=== PATIENT | male | born 1960 | race Caucasian/White ===

== ENCOUNTER 2019-09-13 20:39 | Inpatient (IN) | payer OTHER, SELFPAY ==
--- NOTE | ~2019-09-13 | XR_ITS ---
EXAMINATION: XR knee LT min 4V EXAM DATE: 09/13/2019 21:33 INDICATION: Left anterior knee pain, pin hole marker on front. TECHNIQUE: Left knee frontal, crosstable lateral, orthogonal oblique projections for interpretation. There is no prior study for comparison. FINDINGS: No evidence osteochondral defect or joint body in the left knee joint. There are no acute fractures or dislocations identified. There is no subcutaneous gas. Large amount of swelling anter ior to the patellar tendon and the patella. There are no radiopaque foreign bodies. No joint effusi on. IMPRESSION: 1. XR knee LT min 4V exam without acute osseous findings. 2. Anterior soft tissue swelling. Possible prepatellar bursitis. Reviewed, dictated and finalized at location A.
[2019-09-13 21:08] VITALS: BP 139/72; PULSE 85; RESP 22; TEMP 36.9; O2SAT 100
--- NOTE | 2019-09-13 23:47 | ED.EXTPRO ---
HPI - Extremity Problem General Chief complaint: Extremity Problem,Nontraumatic Stated complaint: left knee pain, swollen, red Time Seen by Provider: 09/13/19 23:47 Source: patient Mode of arrival: ambulatory Limitations: no limitations History of Present Illness HPI Narrative: Patient is a 59-year-old male who presents for evaluation of left knee pain and swelling. Patient reports a 3-day history of worsening knee redness, swelling and pain. Patient states the pain is so severe he has been unable to range the knee. Patient denies any medical history. He states he is a daily smoker. When questioned about skin infections, he states he once had an abscess on his right arm. No history of intra-articular joint infection. No history of IV drug abuse. Patient denies fever, but reports that the knee feels warm. He denies trauma or recent fall. No history of injuring this knee in the past. Related Data Home Medications Medication Instructions Recorded Confirmed cyclobenzaprine mg 09/13/19 naproxen PO 09/13/19 Allergies Allergy/AdvReac Type Severity Reaction Status Date / Time Penicillins Allergy Unknown Rash Verified 09/13/19 23:43 morphine AdvReac Confusion Verified 09/13/19 23:43 Review of Systems Review of Systems: Narrative: CONSTITUTIONAL: Denies fever CARDIOVASCULAR: Denies chest pain RESPIRATORY: Denies cough or dyspnea. GASTROINTESTINAL: Denies abdominal pain SKIN: Denies rash MUSCULOSKELETAL: Denies back pain, reports left knee pain NEUROLOGIC: Denies headache PMFSH Past Medical History Medical History Abscess Surgical History Surgical History H/O hernia repair Social History Social History (Updated 09/14/19 @ 00:29 by Carlota Ervin MD) Smoking status: Current every day smoker Tobacco type: cigarettes Alcohol intake: never Substance use: never Living arrangements: with family Gender identity (if verbalized by the patient): Male Exam Narrative: Exam Narrative: GENERAL: Awake, alert, conversant HEAD: Normocephalic, atraumatic. EYES: PERRLA and EOMI. ENT: Nares clear, no rhinorrhea or epistaxis. Mucous membranes moist. NECK: Supple. CHEST: No respiratory distress, breathing even and non labored HEART: Regular rate, sinus rhythm ABDOMEN:Non distended, non tender EXTREMITIES: Left knee is erythematous, edematous, warm to touch. Patient with difficulty completing active range of motion due to pain. Has very minimal flexion. DP pulse 2+. Intact distal sensation. No open wounds or drainage. SKIN: Warm, dry, no rash. NEURO:No focal deficits. Alert and oriented x3 Course Vital Signs Vital signs: Vital Signs Temperature 36.9 C 09/13/19 21:08 Pulse Rate 85 09/13/19 21:08 Respiratory Rate 22 H 09/13/19 21:08 Blood Pressure 139/72 09/13/19 21:08 Pulse Oximetry 100 09/13/19 21:08 Temperature 36.9 C 09/13/19 21:08 Pulse Rate 64 09/14/19 02:09 Respiratory Rate 18 09/14/19 02:09 Blood Pressure 123/74 09/14/19 02:09 Pulse Oximetry 99 09/14/19 02:09 MDM - Extremity (Nontraumatic) MDM Narrative Medical decision making narrative: Patient presented for evaluation of atraumatic left knee pain. Knee is erythematous, edematous, pain with flexion and extension, so much so that this is very limited on exam. Patient is neurovascularly intact. X-ray without acute osseous findings. Patient with a leukocytosis, elevation in inflammatory markers making this very concerning for abscess or intra-articular joint infection. Given patient's history and findings on physical exam, also consistent with prepatellar bursitis versus abscess. Patient was given IV vancomycin, Tylenol, I spoke with orthopedic surgeon on-call who evaluate the patient in the morning. No arthrocentesis given surrounding cellulitis. Patient admitted to hospitalist service. Lab Da
[2019-09-14] VITALS (18 sets, daily range): BP systolic 84–139; BP diastolic 50–90; PULSE 58–93; RESP 12–20; TEMP 36.2–36.9; O2SAT 92–100; BMI 29.5
[2019-09-14] MEDS: SODIUM CHLORIDE 0.9% IV 1,000 ML 999 ML IV CONT (00:50)
[2019-09-14] MEDS: ACETAMINOPHEN 500 MG TABLET 1000 MG PO (00:51)
[2019-09-14 01:03] LABS: Basophils Percent Auto 0.3 % (0.2-1.2); Eosinophils Absolute Auto 0.1 K/mm3 (0-0.3); Hematocrit 37.6 % (42.0-52.0); Hemoglobin 12.6 g/dL (14.0-18.0); Immature Granulocyte Absolute 0.06 K/mm3 (0.00-0.031); Immature Granulocyte Percent A 0.5 % (0-0.5); Lymphocytes Absolute Auto 2.98 K/mm3 (0.9-3.2); Lymphocytes Percent Auto 25.8 % (18.3-44.2); Mean Corpuscular HGB Conc 33.5 g/dl (32-36); Mean Corpuscular Hemoglobin 32.7 pg (26-34); Mean Corpuscular Volume 97.7 fl (80-100); Mean Platelet Volume 10.2 fl (7.4-10.4); Monocytes Percent Auto 8.8 % (2.6-8.5); Neutrophils Absolute Auto 7.3 K/mm3 (1.3-6.7); Neutrophils Percent Auto 63.6 % (45.5-73.1); Platelet Count Result 172 k/mm3 (150-375); Red Blood Count 3.85 M/mm3 (4.6-6.20); Red Cell Distribution Width 12.9 % (11.5-14.5); White Blood Count 11.5 K/mm3 (4.5-10.0)
[2019-09-14 01:17] LABS: Anion Gap 9.6 mmol/L (7-16); Blood Urea Nitrogen 19 mg/dL (9-20); CRP 2.7 mg/dL (<1.0); Calcium 8.5 mg/dL (8.4-10.2); Carbon Dioxide 23 mmol/L (22-30); Chloride 106 mmol/L (98-107); Estimated CRCL calculation 93 ml/min; Estimated Glomerular Filt Rate > 60; Glucose 123 mg/dL (75-110); Potassium 3.6 mmol/L (3.4-5.0); Sodium 135 mmol/L (137-145)
--- NOTE | 2019-09-14 01:33 | PC.NURSE ---
PT STATES [AIN 06/27. OFFERED PAIN MEDICATION. PT REFUSES PAIN MEDS. WILL CONTINUE TO MONITOR
[2019-09-14 01:51] LABS: Erythrocyte Sedimentation Rate 25 mm/hr (0-20)
--- NOTE | 2019-09-14 04:05 | ADMGEN ---
This patient, Rickie Stanton, was admitted to [facility] Surg Room 313-01. Patient/family oriented to hospital policies and general routines including ID bracelet, bed and alarms, visiting hours, pain management, procedures, bathroom and other care routines, personal items, smoking policy, room service/diet, and visiting hours. Valuables list has been completed. Information on how to activate the Rapid Response Team has been discussed. Patient/Family are encouraged to report perceived risks to care and to ask questions if they do not understand what they are told or what they should do.
[2019-09-14] MEDS: SODIUM CHLORIDE 0.9% IV 1,000 ML 125 ML IV CONT (05:28)
[2019-09-14 06:49] LABS: Estimated CRCL calculation 92 ml/min; Estimated Glomerular Filt Rate > 60
--- NOTE | 2019-09-14 08:01 | P.HP_ITS ---
H&P: HPI History of Present Illness Chief complaint: Pre patellar bursitis possible abscess Narrative: Rickie Stanton is a 59 year old male Review of Systems Review of Systems: All systems reviewed & are unremarkable except as noted in HPI and below PMFSH Past Medical History Medical History Abscess Surgical History Surgical History H/O hernia repair Social History Social History (Updated 09/14/19 @ 00:29 by Carlota Ervin MD) Smoking packs per day: 1 Smoking cigarettes per day: 20.0 Years smoked: 47 Smoking pack-years: 47.00 Smoking status: Current every day smoker Tobacco type: cigarettes Alcohol intake: never Substance use: never Living arrangements: with family Gender identity (if verbalized by the patient): Male Spiritual care concerns: No Meds Home Medications and Allergies Home Medications Medication Instructions Recorded Confirmed Type cyclobenzaprine 10 mg PO BID PRN 09/13/19 09/14/19 History naproxen 500 mg PO BID PRN 09/13/19 09/14/19 History Allergies Allergy/AdvReac Type Severity Reaction Status Date / Time Penicillins Allergy Unknown Rash Verified 09/13/19 23:43 morphine AdvReac Confusion Verified 09/13/19 23:43 Vital Signs Vital Signs - 24 hr 09/13/19 21:08 09/14/19 00:32 09/14/19 02:09 Temperature 98.4 F Pulse Rate 85 93 64 Respiratory Rate 22 H 20 18 Blood Pressure 139/72 84/64 L 123/74 Pulse Oximetry 100 95 99 09/14/19 02:46 09/14/19 03:49 09/14/19 03:55 Temperature 97.5 F L Pulse Rate 60 60 58 L Respiratory Rate 20 20 20 Blood Pressure 122/90 122/90 127/71 Pulse Oximetry 100 100 99 09/14/19 05:52 Temperature 97.1 F L Pulse Rate 58 L Respiratory Rate 20 Blood Pressure 126/74 Pulse Oximetry 99 Exam Narrative: Exam Narrative: General:Well developed well nourished patient HEENT: Normocephalic, atraumatic, PERRL, Sclerae anicteric, oral mucosa moist. Neck: Supple Resp: CTA Heart: RRR with no murmurs Abd: Soft, nontender. No pain to palpation. Positive bowel sounds Skin: Warm and dry Extremities: No swelling, erythema or pain to palpation Neuro: Alert and Oriented x . CN 2-12 intact. No focal neurological deficits. H&P: Results Labs Labs: Short CBC 09/14/19 Range/Units 00:45 WBC 11.5 H (4.5-10.0) K/mm3 Hgb 12.6 L (14.0-18.0) g/dL Hct 37.6 L (42.0-52.0) % Plt Count 172 (150-375) k/mm3 [facility] 09/14/19 09/14/19 00:45 05:55 Sodium 135 L Potassium 3.6 Chloride 106 Carbon Dioxide 23 BUN 19 Creatinine 0.90 0.80 Glucose 123 H Calcium 8.5 Quality VTE Prophylaxis VTE prophylaxis: mechanical ordered
--- NOTE | 2019-09-14 09:29 | PM.IMHP ---
H&P: HPI History of Present Illness Chief complaint: Pre patellar bursitis possible abscess Narrative: Rickie Stanton is a 59 year old male with a history of mild COPD who presented emergency room for left knee pain and swelling. Patient states that he started noticing some erythema on the knee Saturday morning and from there it started worsening. He said it is now painful 10/10 and he can't even bear weight on it. He does not have any history of trauma to the area or bug bites that he knows of. He has no history of gout. He takes naproxen daily for arthritis which has not helped his pain. He has not tried anything else other than that. He says the Tylenol does help with his pain here at the hospital. He has no history of HIV or IV drug use. He denies fevers, chills, diarrhea, constipation, nausea, vomiting, chest pain, shortness of breath, numbness or tingling to the area, rashes, wounds, dysuria, abdominal pain or headaches. Back in 2004 he had an abscess on his arm which sounds like was treated with an I&D. He says he sees his primary care doctor about once urine last saw them 8 months ago. He walks around at home normally without any assisted devices and does not have any history of falls. He has mild COPD and takes a bruit uteri all as needed and takes it maybe once every 6 months. He does not have any maintenance inhalers. He had a cardiac catheterization which was negative in 2015 and was told to take aspirin thereafter but has not been doing so because he bleeds too much . He does not Want a nicotine patch while hospitalized. Review of Systems Review of Systems: All systems reviewed & are unremarkable except as noted in HPI and below PMFSH Past Medical History Medical History (Updated 09/14/19 @ 09:38 by Alisha Colvin PA-C) Abscess COPD (chronic obstructive pulmonary disease) Surgical History Surgical History (Updated 09/14/19 @ 09:33 by Alisha Colvin PA-C) H/O hernia repair History of cardiac catheterization reportedly negative History of cholecystectomy Family History Family History (Updated 09/14/19 @ 09:34 by Alisha Colvin PA-C) Mother Lymphoma Diabetes mellitus Father Heart disease COPD (chronic obstructive pulmonary disease) Social History Social History (Updated 09/14/19 @ 09:35 by Alisha Colvin PA-C) Social History: patient smokes 1 pack per day and has been doing so for 47 years. He has no interest in quitting. He does not do marijuana or drugs. No alcohol. 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 He designates his , Rachelle, as his surrogate decision maker. He would like to be a full code but makes note that he does not want to be on prolonged life support if needed. Smoking packs per day: 1 Smoking cigarettes per day: 20.0 Years smoked: 47 Smoking pack-years: 47.00 Smoking status: Current every day smoker Tobacco type: cigarettes Alcohol intake: never Substance use: never Living arrangements: with family Gender identity (if verbalized by the patient): Male Spiritual care concerns: No Meds Home Medications and Allergies Home Medications Medication Instructions Recorded Confirmed Type cyclobenzaprine 10 mg PO BID PRN 09/13/19 09/14/19 History naproxen 500 mg PO BID PRN 09/13/19 09/14/19 History Allergies Allergy/AdvReac Type Severity Reaction Status Date / Time Penicillins Allergy Unknown Rash Verified 09/13/19 23:43 morphine AdvReac Confusion Verified 09/13/19 23:43 Vital Signs Vital Signs - 24 hr 09/13/19 21:08 09/14/19 00:32 09/14/19 02:09 Temperature 98.4 F Pulse Rate 85 93 64 Respiratory Rate 22 H 20 18 Blood Pressure 139/72 84/64 L 123/74 Pulse Oximetry 100 95 99 09/14/19 02:46 09/14/19 03:49 09/14/19 03:55 Temperature 97.5 F L Pulse Rate 60 60 58 L Respiratory Rate 20 20 20 Blood Pressure 122/90 122/90 127/71 Pulse Oximetry 100 100 99 09/14/19 05:52 09/14/19 08:00 Temperature 97.1 F L Pulse
--- NOTE | 2019-09-14 09:59 | PM.CNOR ---
Assessment and Plan Assessment and plan (1) Abscess of bursa, left knee: Code(s): M71.062 - Abscess of bursa, left knee Status: Acute Assessment and Plan: 59 year old male with a 2 day history of left anterior knee pain, swelling, redness and warmth. History, exam and radiographs reviewed with the patient. Radiographs of the left knee reveal no evidence of fracture, dislocation or acute abnormality. Large swelling to the anterior aspect of the left knee noted on radiographs with no radiopaque foreign bodies. No joint effusion noted. CR 2.7. On exam, redness/warmth/swelling of the anterior knee consistent with prepatellar bursa abscess. Discussed condition, nature, etiology and course of natural history. Conservative and operative treatment options reviewed as well as the risks and benefits of each. Patient reports mild relief of pain/swelling and erythema with IV antibiotics. Continued pain with flexion/extension of the left knee and inability to bear weight on the LLE due to pain. Discussed: I&D Left prepatellar bursa abscess Risks of surgery including but not limited to neurovascular damage, wound complications, blood clot, pulmonary embolus, stroke, myocardial infarction, anesthetic risks up to and including were reviewed. Continued pain and possible dysfunction were explained. No guarantees were offered. The patient understands and wishes to proceed. Plan: I&D Left Prepatellar Bursa Abscess by Dr. Godwin pending further evaluation. Continue NPO at this time Continue IV antibiotis. Continue pain control. Ice/Elevate LLE. PWB LLE. History of Present Illness HPI Consult date: 09/14/19 Requesting physician: Carlota Ervin MD Consult reason: other (Left Knee Prepatellar Bursa Abscess ) Chief complaint: Pre patellar bursitis possible abscess Narrative: 59 year old male admitted with a left knee prepatellar bursa infection. He reports new onset redness/warmth and swelling on Saturday after working all day Saturday. 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 He does not wear knee pads. The redness/warmth of the left anterior knee increased on Saturday, prompting his arrival to the ED for further evaluation. He denies fever, chills, night sweats, nausea, vomiting or diarrhea. He is a current every day smoker. He reports a history of skin abscesses of his right forearm in 2004 and left 3rd finger joint infection in 1983, both requiring I&D and antibiotics/wound care. Review of Systems Constitutional: Constitutional: Denies chills, Denies fatigue, Denies lethargy, Denies night sweats and Denies weakness Eyes: Eyes: Reports no additional eye complaints and Denies blurry vision ENT: Reports Normal hearing present and Denies nasal discharge Cardiovascular: Cardiovascular: Denies chest pain, Denies lightheadedness and Denies palpitations Respiratory: Respiratory: Denies cough and Denies dyspnea Gastrointestinal: Gastrointestinal: Denies abdominal pain, Denies bloating, Denies diarrhea, Denies nausea and Denies vomiting Genitourinary: Genitourinary: Denies dysuria Musculoskeletal: Musculoskeletal: Reports as per HPI and Reports arthralgias (Left Knee ) Comments: Pain with AROM/PROM of the left knee. Limitations with flexion due to pain. Anterior left knee swelling, redness, warmth Integumentary/Breasts: Skin/Breast: Reports erythema (Left Knee ) and Reports wounds (Small abraison left anterior knee ) Neurologic: Reports abnormal gait (Pain LLE due to knee infection ) and Denies numbness Psychiatric: Psychiatric: Denies anxiety, Denies confusion and Denies depression [facility] Past Medical History Medical History (Updated 09/14/19 @ 10:23 by KANE Payton) Abscess History of right forearm abscess in 2004 History of left 3rd finger joint infection in 1983 Abscess of bursa, left knee COPD (chronic obstructive pulmonary disease) GERD (gastroesophageal reflux disease)
[2019-09-14 10:52] LABS: Uric Acid 5.3 mg/dL (3.5-8.5)
[2019-09-14] MEDS: LACTATED RINGERS 1,000 ML 30 ML IV CONT ×2 (13:20→16:07)
--- NOTE | 2019-09-14 14:09 | WPDANESEPPF ---
Anes - Initial Pre Proc Eval Procedure: Operation Date: 09/14/19 14:30 Proposed Procedures p INCISION AND DRAINAGE LEFT PREPATELLAR BURSA - Ted Godwin MD Date/Time: 09/14/19 14:09 Surgeon: Alisha Colvin PA-C Pre Op Diagnosis: Pre patellar bursitis possible abscess Patient Data Age: 59 Gender: M Height: 1.8 m Weight: 96 kg Last Vital Signs Temp 36.9 C 09/14/19 13:22 Pulse 62 09/14/19 13:22 Resp 20 09/14/19 13:22 BP 129/69 09/14/19 13:22 Pulse Ox 99 09/14/19 13:22 Allergies Allergy/AdvReac Type Severity Reaction Status Date / Time Penicillins Allergy Unknown Rash Verified 09/13/19 23:43 morphine AdvReac Confusion Verified 09/13/19 23:43 Home Medications Medication Instructions Recorded Confirmed Type cyclobenzaprine 10 mg PO BID PRN 09/13/19 09/14/19 History naproxen 500 mg PO BID PRN 09/13/19 09/14/19 History Laboratory Tests 09/14/19 09/14/19 09/14/19 00:45 00:45 05:55 WBC 11.5 K/mm3 H K/mm3 (4.5-10.0) RBC 3.85 M/mm3 L M/mm3 (4.6-6.20) Hgb 12.6 g/dL L g/dL (14.0-18.0) Hct 37.6 % L % (42.0-52.0) MCV 97.7 fl fl (80-100) MCH 32.7 pg pg (26-34) MCHC 33.5 g/dl g/dl (32-36) RDW 12.9 % % (11.5-14.5) Plt Count 172 k/mm3 k/mm3 (150-375) MPV 10.2 fl fl (7.4-10.4) Immature Gran % (Auto) 0.5 % % (0-0.5) Neut % (Auto) 63.6 % % (45.5-73.1) Lymph % (Auto) 25.8 % % (18.3-44.2) [place] % (Auto) 8.8 % H % (2.6-8.5) Eos % (Auto) 1.0 % % (0-4.4) Baso % (Auto) 0.3 % % (0.2-1.2) Lymph # (Auto) 2.98 K/mm3 K/mm3 (0.9-3.2) [place] # (Auto) 1.0 K/mm3 H K/mm3 (0.1-0.6) Eos # (Auto) 0.1 K/mm3 K/mm3 (0-0.3) Baso # (Auto) 0.0 K/mm3 K/mm3 (0.0-0.1) Abs Immat Gran (auto) 0.06 K/mm3 H K/mm3 (0.00-0.031) Absolute Neuts (auto) 7.3 K/mm3 H K/mm3 (1.3-6.7) Absolute Nucleated RBC 0.0 K/mm3 K/mm3 (0.0-0.012) Nucleated RBC % 0.0 % % (0.0-0.2) ESR 25 mm/hr H mm/hr (0-20) Sodium 135 mmol/L L mmol/L (137-145) Potassium 3.6 mmol/L mmol/L (3.4-5.0) Chloride 106 mmol/L mmol/L (98-107) Carbon Dioxide 23 mmol/L mmol/L (22-30) Anion Gap 9.6 mmol/L mmol/L (7-16) BUN 19 mg/dL mg/dL (9-20) Creatinine 0.90 mg/dL mg/dL 0.80 mg/dL mg/dL (0.7-1.3) (0.7-1.3) Estim Creat Clear Calc 93 ml/min ml/min 92 ml/min ml/min Estimated GFR > 60 > 60 (59 - ) (59 - ) Glucose 123 mg/dL H mg/dL (75-110) Uric Acid Calcium 8.5 mg/dL mg/dL (8.4-10.2) C-Reactive Protein 2.7 mg/dL H mg/dL (<1.0) 09/14/19 10:09 WBC RBC Hgb Hct MCV MCH MCHC RDW Plt Count MPV Immature Gran % (Auto) Neut % (Auto) Lymph % (Auto) [place] % (Auto) Eos % (Auto) Baso % (Auto) Lymph # (Auto) [place] # (Auto) Eos # (Auto) Baso # (Auto) Abs Immat Gran (auto) Absolute Neuts (auto) Absolute Nucleated RBC Nucleated RBC % ESR Sodium Potassium Chloride Carbon Dioxide Anion Gap BUN Creatinine Estim Creat Clear Calc Estimated GFR Glucose Uric Acid 5.3 mg/dL mg/dL (3.5-8.5) Calcium C-Reactive Protein Patient hx anesthesia problems: none Family hx anesthesia problems: none [facility] Past Medical History Medical History (Updated 09/14/19 @ 10:23 by KANE Payton) Abscess History of right forearm abscess in 2004 History of left 3rd finger joint infection in 1983 Abscess of bursa, left knee COPD (chronic obstructive pulmonary disease) GERD (gastroesophageal reflux disease) Surgica
--- NOTE | 2019-09-14 16:01 | PM.OP ---
Procedure Note - Brief Procedure Note - Brief Date of procedure: 09/14/19 Pre-op diagnosis: Pre patellar bursitis possible abscess Post-op diagnosis: same Procedure performed: incision and drainage with irrigatio and excisional debridement left pre patella bursae Anesthesia: GLMA Surgeon: Ted Godwin MD Estimated blood loss (mL): 10 Packing: No Pathology: other (microbiology) Complications: No immediate complications Condition: stable Disposition: PACU
--- NOTE | 2019-09-14 17:39 | OP_ITS ---
DATE OF PROCEDURE: 09/14/2019 PREOPERATIVE DIAGNOSIS: Left prepatellar bursitis with abscess. POSTOPERATIVE DIAGNOSIS: Left prepatellar bursitis with abscess. PROCEDURE: Incision and drainage with irrigation and excisional debridement of left prepatellar bursa. ANESTHESIA: General. COMPLICATIONS: None. INDICATIONS: This is a 59-year-old male who approximately 3 days ago started developing pain, and then eventually cellulitis to the left knee around the prepatellar bursa region. He had difficulty with ambulating and bending the knee, so he went to the emergency department and presented there yesterday, he had a large cellulitic area. His white count was elevated and the CRP also was elevated. He was diagnosed with an infectious prepatellar bursitis with an abscess, and then he eventually was indicated for incision and drainage of the left prepatellar bursa. DESCRIPTION OF PROCEDURE: The patient was taken to the operating room in stable position, placed in supine position. General anesthesia was induced. The left lower extremity was prepped and draped sterilely from the toes to the thigh. Incision was made over the prepatellar bursa down into the subcutaneous tissues and eventually into the prepatellar space. There was an abscess fluid coming from the space. This was cultured and this was sent for laboratory evaluation. Next, the incision continued until the tibial tuberosity was identified and distal pole of the patella was identified. Digital adhesiolysis was performed of the bursal space, because there was significant amount of adhesions. There was no communication to the knee joint proper. Then, there was no significant effusion to the knee joint on examination. Next, a rongeur was used to perform excisional debridement of the bursa until all the bursal tissue was removed. Once that was performed, then a saline solution with antibiotic solution were used to irrigate the prepatellar space with copious amounts of fluid. The wound then was dried, and then the skin edges were approximated loosely with a #3-0 Prolene on a cutting needle, and then a dressing was applied. The patient then was extubated and sent to recovery. Louie I MT: [facility]
[2019-09-14] MEDS: NAPROXEN 500 MG TABLET PO (20:42)
[2019-09-15 04:36] VITALS: BP 126/64; PULSE 54; RESP 18; TEMP 36.1; O2SAT 98
[2019-09-15 06:18] LABS: Basophils Percent Auto 0.2 % (0.2-1.2); Eosinophils Percent Auto 0.1 % (0-4.4); Hemoglobin 12.3 g/dL (14.0-18.0); Immature Granulocyte Percent A 1.1 % (0-0.5); Lymphocytes Absolute Auto 1.73 K/mm3 (0.9-3.2); Lymphocytes Percent Auto 9.5 % (18.3-44.2); Mean Corpuscular HGB Conc 34.2 g/dl (32-36); Mean Corpuscular Hemoglobin 33.1 pg (26-34); Mean Corpuscular Volume 96.8 fl (80-100); Mean Platelet Volume 10.3 fl (7.4-10.4); Monocytes Absolute Auto 0.8 K/mm3 (0.1-0.6); Monocytes Percent Auto 4.3 % (2.6-8.5); Neutrophils Absolute Auto 15.4 K/mm3 (1.3-6.7); Neutrophils Percent Auto 84.8 % (45.5-73.1); Platelet Count Result 175 k/mm3 (150-375); Red Blood Count 3.72 M/mm3 (4.6-6.20); Red Cell Distribution Width 12.5 % (11.5-14.5); White Blood Count 18.2 K/mm3 (4.5-10.0)
[2019-09-15 06:46] LABS: Anion Gap 9.1 mmol/L (7-16); Blood Urea Nitrogen 13 mg/dL (9-20); CRP 5.5 mg/dL (<1.0); Calcium 8.6 mg/dL (8.4-10.2); Carbon Dioxide 21 mmol/L (22-30); Chloride 108 mmol/L (98-107); Estimated CRCL calculation 104 ml/min; Estimated Glomerular Filt Rate > 60; Glucose 192 mg/dL (75-110); Potassium 4.1 mmol/L (3.4-5.0); Sodium 134 mmol/L (137-145)
[2019-09-15 08:35] LABS: Hemoglobin A1C 5.5 % (<5.7)
--- NOTE | 2019-09-15 10:58 | P.PNAN_ITS ---
Anes - Prog Note Post-Op Date/Time: 09/15/19 10:58 Cardiovascular status: normal Respiratory status: normal Airway patency: baseline Mental status: baseline Post-Op hydration status: normal Vital Signs: Last Vital Signs Temp 36.1 C L 09/15/19 04:36 Pulse 54 L 09/15/19 04:36 Resp 18 09/15/19 04:36 BP 126/64 09/15/19 04:36 Pulse Ox 98 09/15/19 04:36 I/O: Intake & Output 09/14/19 09/15/19 09/15/19 23:59 07:59 15:59 Intake Total 1860 700 720 Output Total 850 900 Balance 1010 -200 720 Laboratory Tests 09/15/19 06:02 09/15/19 06:02 09/15/19 09/15/19 09/15/19 06:02 06:02 06:02 WBC 18.2 H RBC 3.72 L Hgb 12.3 L Hct 36.0 L MCV 96.8 MCH 33.1 MCHC 34.2 RDW 12.5 Plt Count 175 MPV 10.3 Immature Gran % (Auto) 1.1 H Neut % (Auto) 84.8 H Lymph % (Auto) 9.5 L [place] % (Auto) 4.3 Eos % (Auto) 0.1 Baso % (Auto) 0.2 Lymph # (Auto) 1.73 [place] # (Auto) 0.8 H Eos # (Auto) 0.0 Baso # (Auto) 0.0 Abs Immat Gran (auto) 0.20 H Absolute Neuts (auto) 15.4 H Absolute Nucleated RBC 0.0 Nucleated RBC % 0.0 Sodium 134 L Potassium 4.1 Chloride 108 H Carbon Dioxide 21 L Anion Gap 9.1 BUN 13 D Creatinine 0.70 Estim Creat Clear Calc 104 Estimated GFR > 60 Glucose 192 H Hemoglobin A1c 5.5 Calcium 8.6 C-Reactive Protein 5.5 H Microbiology 09/14/19 15:37 Knee Left Anaerobic Culture - Preliminary Post-procedural complaints: none Patient Feedback: Patient satisfied with anesthetic care.
--- NOTE | 2019-09-15 13:10 | PM.PNORT ---
Progress Note: A&P Assessment and Plan (1) Abscess of bursa, left knee: Code(s): M71.062 - Abscess of bursa, left knee Status: Acute Assessment and Plan: POD #1: I&D Left Prepatellar Bursa Infection Continue IV antibiotics. ID consult pending. Appreciate input. Cultures pending. Continue to monitor. Continue YAO wrap/dressing. Change tomorrow. Apply Mepilex Silver dressing to knee. Continue pain control. Ice. Elevate. (2) Tobacco dependence: Code(s): F17.200 - Nicotine dependence, unspecified, uncomplicated Status: Acute Assessment and Plan: Discussed importance of smoking cessation for optimal knee incision healing. Subjective Subjective Date/Time Seen: 09/15/19 13:10 POD #1: I&D Left Prepatellar Bursa Abscess Patient doing well. Denies pain. Feels 100% better per patient. Review of Systems Constitutional: Constitutional: Denies chills, Denies fatigue, Denies lethargy, Denies night sweats and Denies weakness Eyes: Eyes: Reports no additional eye complaints and Denies blurry vision ENT: Reports Normal hearing present and Denies nasal discharge Cardiovascular: Cardiovascular: Denies chest pain, Denies lightheadedness and Denies palpitations Respiratory: Respiratory: Denies cough and Denies dyspnea Gastrointestinal: Gastrointestinal: Denies abdominal pain, Denies bloating, Denies diarrhea, Denies nausea and Denies vomiting Genitourinary: Genitourinary: Denies dysuria Musculoskeletal: Musculoskeletal: Reports as per HPI and Reports arthralgias (Left Knee ) Comments: improvement in pain of the left knee with AROM/PROM. Dressing intact Integumentary/Breasts: Skin/Breast: Denies swelling and Reports other (dressing c/d/i) Neurologic: Denies numbness Psychiatric: Psychiatric: Denies anxiety, Denies confusion and Denies depression Exam Const: General: comfortable and no acute distress Resp: Effort & Inspection: normal respiratory effort Cardio: Rate: regular rate Rhythm: regular rhythm GI: Inspection: non-distended Skin: Other: Dressing left knee c/d/i Neuro: General: gait normal (PWB LLE ) Cognition (Neuro): normal cognition Extrem: Left lower extremity: knee Details: normal ROM (AROM/PROM without pain today ) and foot (2+ pedal pulses. +ankle dorsiflexion/plantarflexion. Negative Talita's sign ) Details: no edema; no tenderness Other: Dressing c/d/i LEFT knee. YAO wrap in place. No drainage. Psych: Mental Status: mental status grossly normal Affect: normal affect Objective Data Vital Signs Vital Signs: Vital Signs - 24 hr 09/14/19 13:22 09/14/19 16:07 09/14/19 16:15 Temperature 36.9 C 36.2 C L Pulse Rate 62 62 63 Respiratory Rate 20 14 14 Blood Pressure 129/69 139/74 120/64 Pulse Oximetry 99 98 100 09/14/19 16:30 09/14/19 16:45 09/14/19 17:00 Temperature Pulse Rate 75 61 62 Respiratory Rate 12 14 12 Blood Pressure 125/79 123/73 126/81 Pulse Oximetry 97 95 93 09/14/19 17:12 09/14/19 17:20 09/14/19 17:35 Temperature Pulse Rate 70 62 60 Respiratory Rate 12 18 18 Blood Pressure 129/80 115/59 L 109/50 L Pulse Oximetry 92 97 97 09/14/19 19:07 09/14/19 23:08 09/15/19 04:36 Temperature 36.6 C 36.1 C L Pulse Rate 61 60 54 L Respiratory Rate 16 16 18 Blood Pressure 112/61 104/57 L 126/64 Pulse Oximetry 98 95 98 Intake/Output Intake/Output: Intake & Output 09/12/19 09/13/19 09/14/19 09/15/19 23:59 23:59 23:59 23:59 Intake Total 3360 1420 Output Total 1400 900 Balance 1960 520 Meds/Results Medications: Active Medications Generic Name Dose Route Start Last Admin Trade Name Freq PRN Reason Stop Dose Admin Acetaminophen 650 mg 09/15/19 04:42 Tylenol Tablet PO Q4H PRN Pain Cyclobenzaprine HCl 10 mg 09/14/19 13:23 Flexeril PO BID PRN Muscle Spasm Vancomycin HCl 1,500 mg in 500 mls @ 333.333 mls/hr 09/14/19 15:00 09/15/19 05:46 Vancomycin 1,500 Mg/D5w 500
--- NOTE | 2019-09-15 13:34 | WPDINFPN2 ---
Progress Note: A&P Assessment and Plan (1) Abscess of bursa, left knee: Code(s): M71.062 - Abscess of bursa, left knee Status: Acute Assessment and Plan: septic bursitis L knee REC POD # 1. Vanc #2. F/U micro Subjective Date/time seen: 09/15/19 13:34 Objective Data Vital Signs Vital Signs: Vital Signs - 24 hr 09/14/19 16:07 09/14/19 16:15 09/14/19 16:30 Temperature 36.2 C L Pulse Rate 62 63 75 Respiratory Rate 14 14 12 Blood Pressure 139/74 120/64 125/79 Pulse Oximetry 98 100 97 09/14/19 16:45 09/14/19 17:00 09/14/19 17:12 Temperature Pulse Rate 61 62 70 Respiratory Rate 14 12 12 Blood Pressure 123/73 126/81 129/80 Pulse Oximetry 95 93 92 09/14/19 17:20 09/14/19 17:35 09/14/19 19:07 Temperature Pulse Rate 62 60 61 Respiratory Rate 18 18 16 Blood Pressure 115/59 L 109/50 L 112/61 Pulse Oximetry 97 97 98 09/14/19 23:08 09/15/19 04:36 Temperature 36.6 C 36.1 C L Pulse Rate 60 54 L Respiratory Rate 16 18 Blood Pressure 104/57 L 126/64 Pulse Oximetry 95 98 Intake/Output Intake/Output: Intake & Output 09/12/19 09/13/19 09/14/19 09/15/19 23:59 23:59 23:59 23:59 Intake Total 3360 1420 Output Total 1400 900 Balance 1960 520 Meds/Results Medications: Active Medications Generic Name Dose Route Start Last Admin Trade Name Freq PRN Reason Stop Dose Admin Acetaminophen 650 mg 09/15/19 04:42 Tylenol Tablet PO Q4H PRN Pain Cyclobenzaprine HCl 10 mg 09/14/19 13:23 Flexeril PO BID PRN Muscle Spasm Vancomycin HCl 1,500 mg in 500 mls @ 333.333 mls/hr 09/14/19 15:00 09/15/19 05:46 Vancomycin 1,500 Mg/D5w 500 Ml IVPB Infused Q12H [facility] Infusion Naproxen 500 mg 09/14/19 17:21 09/14/19 20:42 Naproxen PO 500 mg BIDWM PRN Administration PAIN 4-6 Radiology Results: ITS Impressions Knee X-Ray 09/14/19 07:29 IMPRESSION: 1. XR knee LT min 4V exam without acute osseous findings. 2. Anterior soft tissue swelling. Possible prepatellar bursitis. Labs Labs: Laboratory Results - last 24 hr 09/15/19 09/15/19 09/15/19 06:02 06:02 06:02 WBC 18.2 H RBC 3.72 L Hgb 12.3 L Hct 36.0 L MCV 96.8 MCH 33.1 MCHC 34.2 RDW 12.5 Plt Count 175 MPV 10.3 Immature Gran % (Auto) 1.1 H Neut % (Auto) 84.8 H Lymph % (Auto) 9.5 L [place] % (Auto) 4.3 Eos % (Auto) 0.1 Baso % (Auto) 0.2 Lymph # (Auto) 1.73 [place] # (Auto) 0.8 H Eos # (Auto) 0.0 Baso # (Auto) 0.0 Abs Immat Gran (auto) 0.20 H Absolute Neuts (auto) 15.4 H Absolute Nucleated RBC 0.0 Nucleated RBC % 0.0 Sodium 134 L Potassium 4.1 Chloride 108 H Carbon Dioxide 21 L Anion Gap 9.1 BUN 13 D Creatinine 0.70 Estim Creat Clear Calc 104 Estimated GFR > 60 Glucose 192 H Hemoglobin A1c 5.5 Calcium 8.6 C-Reactive Protein 5.5 H
--- NOTE | 2019-09-15 13:53 | PM.IMPN ---
Progress Note: A&P Assessment and Plan (1) Abscess of bursa, left knee: Code(s): M71.062 - Abscess of bursa, left knee Status: Acute Assessment and Plan: ----- Postop day 1 of incision and drainage in the OR. G stain negative but awaiting cultures. Will continue vancomycin at this time. Patient's pain and erythema much improved. Will await cultures and adjust antibiotics accordingly. Appreciate further recommendations from Ortho and Infectious Disease. (2) Acute knee pain: Code(s): M25.569 - Pain in unspecified knee Status: Acute Assessment and Plan: ----- Improved, see above. (3) COPD (chronic obstructive pulmonary disease): Code(s): J44.9 - Chronic obstructive pulmonary disease, unspecified Status: Acute Assessment and Plan: ----- no exacerbation at this time. Will do albuterol p.r.n. as needed for shortness of breath. (4) Tobacco dependence: Code(s): F17.200 - Nicotine dependence, unspecified, uncomplicated Status: Acute Assessment and Plan: ----- we had a discussion greater than 6 minutes about the affects of smoking which include worsening COPD and . He does not want a nicotine patch at this time. He does not have any desire to quit. Time Spent With Patient Time with patient: 25 - 35 minutes Subjective Date/time seen: 09/15/19 13:53 Interval history: Pt is a 59 year old male here for left knee abscess. Patient was seen today and states he feels much better. He is able to bend his knee and touch the area which is much improved from yesterday. Pt denies nausea, vomiting, fevers, chills, constipation, diarrhea, chest pain, sob, or abdominal pain. Review of Systems Review of Systems: All systems reviewed & are unremarkable except as noted in HPI and below Exam Narrative: Exam Narrative: General:Well developed well nourished patient resting comfortably in bed in no acute distress HEENT: Normocephalic, atraumatic, PERRL, Sclerae anicteric, oral mucosa moist. Neck: Supple Resp: mildly decreased breath sounds, clear throughout. No wheezing Heart: RRR with no murmurs Abd: Soft, nontender. No pain to palpation. Positive bowel sounds Skin: Warm and dry Extremities: left knee examined. Incision clean and dry without dehiscence, erythema, or bleeding. No pain to palpation to this area today. Range of motion much better. Right knee and leg within normal limits. Neuro: Alert and Oriented x 4. . CN 2-12 intact. No focal neurological deficits. Objective Data Vital Signs Vital Signs: Vital Signs - 24 hr 09/14/19 16:07 09/14/19 16:15 09/14/19 16:30 Temperature 97.1 F L Pulse Rate 62 63 75 Respiratory Rate 14 14 12 Blood Pressure 139/74 120/64 125/79 Pulse Oximetry 98 100 97 09/14/19 16:45 09/14/19 17:00 09/14/19 17:12 Temperature Pulse Rate 61 62 70 Respiratory Rate 14 12 12 Blood Pressure 123/73 126/81 129/80 Pulse Oximetry 95 93 92 09/14/19 17:20 09/14/19 17:35 09/14/19 19:07 Temperature Pulse Rate 62 60 61 Respiratory Rate 18 18 16 Blood Pressure 115/59 L 109/50 L 112/61 Pulse Oximetry 97 97 98 09/14/19 23:08 09/15/19 04:36 Temperature 97.9 F 97.0 F L Pulse Rate 60 54 L Respiratory Rate 16 18 Blood Pressure 104/57 L 126/64 Pulse Oximetry 95 98 Intake/Output Intake/Output: Intake & Output 09/12/19 09/13/19 09/14/19 09/15/19 23:59 23:59 23:59 23:59 Intake Total 3360 1420 Output Total 1400 900 Balance 1960 520 Meds/Results Medications: Active Medications Generic Name Dose Route Start Last Admin Trade Name Freq PRN Reason Stop Dose Admin Acetaminophen 650 mg 09/15/19 04:42 Tylenol Tablet PO Q4H PRN Pain Cyclobenzaprine HCl 10 mg 09/14/19 13:23 Flexeril PO BID PRN Muscle Spasm Vancomycin HCl 1,500 mg in 500 mls @ 333.333 mls/hr 09/14/19 15:00 09/15/19 05:46 Vancomycin 1,500 Mg/D5w 500 Ml IVPB Infus
[2019-09-15 14:00] VITALS: BP 128/56; PULSE 69; RESP 18; TEMP 36.8; O2SAT 100
[2019-09-15 14:49] LABS: Vancomycin Trough 8.1 ug/mL (10.0-20.0)
--- NOTE | 2019-09-15 18:33 | CONS_ITS ---
DATE OF CONSULTATION: 09/15/2019 REASON FOR CONSULTATION: Left knee bursitis. HISTORY OF PRESENT ILLNESS: The patient is a 59-year-old male, previously healthy, unfortunately continues to smoke. 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 He has had no discrete trauma to the left knee recently. He has been on no antibiotics recently and no immunosuppressants of any kind. He was in his usual state of health until 2 days before admission when he noticed a subcentimeter reddened area over the anterior left knee. By the following day, this became increasingly red throughout the anterior knee, presented to the emergency room and was admitted on the . He was taken to the operating room yesterday where he underwent a bursectomy, left knee, prepatellar. Findings included purulence inside the bursa. He had been on vancomycin day #2 and consultation requested. The knee feels much better at this time. He had mildly diminished range of motion preop. No other skin lesions of note subjectively and no prior such episodes. He notes no vascular compromise to the left leg and no previous operations to the left leg. ALLERGIES: PENICILLIN CAUSED RASH. ALSO MORPHINE. PRESENT MEDICATIONS: List reviewed. No immunosuppressants. HABITS: As above. PAST MEDICAL HISTORY: He carries the diagnoses of COPD, GERD, hernia repair, cholecystectomy, cardiac cath. FAMILY HISTORY: Not pertinent to his present illness. SOCIAL HISTORY: . Lives locally. Works as above. REVIEW OF SYSTEMS: Constitutional, musculoskeletal, skin, GI, respiratory otherwise negative. PHYSICAL EXAMINATION: GENERAL: This is a middle-aged male who appears his actual age. No acute distress. VITAL SIGNS: Afebrile, 126/64, 54, 18, 98%. SKIN: Warm and dry. EENT: Conjunctivae are normal. The oropharynx, oral mucosa normal. NECK: No meningismus. LUNGS: Clear to auscultation. CARDIAC: Regular rate and rhythm. Bradycardic. No gallops. ABDOMEN: Soft, nontender. No organomegaly. EXTREMITIES: Left knee is dressed. There is no proximal or distal erythema, edema, or lymphangitis. LABORATORY DATA: Blood cultures, no growth so far. His white count 18.2, hemoglobin 12.3, platelets are 175. He has a mild left shift on differential. He has mild hyponatremia. BUN is 13, creatinine 0.7, glucose 192. A1c 5.5, uric acid 5.3. CRP was 6. From the operating room fluid, no organisms seen. RADIOLOGY: Knee x-ray performed on showed soft tissue swelling. No other abnormalities. ASSESSMENT: 1. Acute bursitis, left knee, prepatellar, likely infectious in nature. Gram stain reveals no organisms, however. 2. Tobacco abuse. RECOMMENDATIONS: 1. Counseled him on tobacco cessation. 2. Continue vancomycin, target trough 10-15 and adjust based upon his allergy listing and results of his culture. I do not anticipate long-term IV therapy. Thank you very much for asking me to see him. PREET OLWE M.D. RN INTERVENTIONAL RN INTERVENTIONAL D I MT: Alicia
[2019-09-15 22:00] VITALS: BP 138/79; PULSE 72; RESP 18; TEMP 37; O2SAT 96
[2019-09-15] MEDS: CALCIUM CARBONATE (TUMS) 500 MG (200 MG ELEMENTAL) PO (23:21)
[2019-09-16 06:00] VITALS: BP 108/69; PULSE 58; RESP 20; TEMP 36.6; O2SAT 98
[2019-09-16 06:14] LABS: Hematocrit 36.3 % (42.0-52.0); Mean Corpuscular HGB Conc 33.1 g/dl (32-36); Mean Corpuscular Hemoglobin 32.4 pg (26-34); Mean Corpuscular Volume 98.1 fl (80-100); Mean Platelet Volume 10.5 fl (7.4-10.4); Platelet Count Result 159 k/mm3 (150-375); Red Cell Distribution Width 12.8 % (11.5-14.5); White Blood Count 11.4 K/mm3 (4.5-10.0)
[2019-09-16 06:39] LABS: Alanine Aminotransferase 12 U/L (4-50); Alkaline Phosphatase 68 U/L (38-126); Anion Gap 8.1 mmol/L (7-16); Aspartate Amino Transferase 23 U/L (17-59); Bilirubin,Total 0.2 mg/dL (0.2-1.3); Blood Urea Nitrogen 12 mg/dL (9-20); Calcium 8.5 mg/dL (8.4-10.2); Carbon Dioxide 26 mmol/L (22-30); Chloride 108 mmol/L (98-107); Estimated CRCL calculation 92 ml/min; Estimated Glomerular Filt Rate > 60; Glucose 96 mg/dL (75-110); Potassium 4.1 mmol/L (3.4-5.0); Sodium 138 mmol/L (137-145)
[2019-09-16 07:12] LABS: HIV 1/2 Ab P24 Ag Result Negative (Negative)
[2019-09-16 08:00] VITALS: PULSE 58; RESP 20; O2SAT 98
[2019-09-16 14:00] VITALS: BP 136/83; PULSE 64; RESP 18; TEMP 36.7; O2SAT 98
--- NOTE | 2019-09-16 14:29 | PM.IMPN ---
Progress Note: A&P Assessment and Plan (1) Abscess of bursa, left knee: Code(s): M71.062 - Abscess of bursa, left knee Status: Acute Assessment and Plan: ----- Postop day 2 of incision and drainage in the OR. Gram stain negative but Culture positive for Staph aureus. Will await cultures before discharge. Will continue vancomycin at this time. Patient does have some allergies, hopefully can discharge home in 1-2 days on oral antibiotics depending on the sensitivities. Patient's pain and erythema much improved. Appreciate further recommendations from Ortho and Infectious Disease. (2) Acute knee pain: Code(s): M25.569 - Pain in unspecified knee Status: Acute Assessment and Plan: ----- Improved, see above. (3) COPD (chronic obstructive pulmonary disease): Code(s): J44.9 - Chronic obstructive pulmonary disease, unspecified Status: Acute Assessment and Plan: ----- no exacerbation at this time. Will do albuterol p.r.n. as needed for shortness of breath. (4) Tobacco dependence: Code(s): F17.200 - Nicotine dependence, unspecified, uncomplicated Status: Acute Assessment and Plan: ----- we had a discussion greater than 6 minutes about the affects of smoking which include worsening COPD and . He does not want a nicotine patch at this time. He does not have any desire to quit. Subjective Date/time seen: 09/16/19 14:29 Interval history: Pt is a 59 year old male here for left knee abscess. Patient was seen today and states he feels much better. He is able to bend his knee and touch the area. He has been up and walking. Pt denies nausea, vomiting, fevers, chills, constipation, diarrhea, chest pain, sob, or abdominal pain. Exam Narrative: Exam Narrative: General:Well developed well nourished patient resting comfortably in bed in no acute distress HEENT: Normocephalic, atraumatic, PERRL, Sclerae anicteric, oral mucosa moist. Neck: Supple Resp: mildly decreased breath sounds, clear throughout. No wheezing Heart: RRR with no murmurs Abd: Soft, nontender. No pain to palpation. Positive bowel sounds Skin: Warm and dry Extremities: left knee examined Incision clean and dry without dehiscence, erythema, or bleeding. No pain to palpation to this area. Range of motion much better. Right knee and leg within normal limits. Neuro: Alert and Oriented x 4. . CN 2-12 intact. No focal neurological deficits. Objective Data Vital Signs Vital Signs: Vital Signs - 24 hr 09/15/19 22:00 09/16/19 06:00 09/16/19 08:00 Temperature 98.6 F 97.8 F Pulse Rate 72 58 L 58 L Respiratory Rate 18 20 20 Blood Pressure 138/79 108/69 Pulse Oximetry 96 98 98 Intake/Output Intake/Output: Intake & Output 09/13/19 09/14/19 09/15/19 09/16/19 23:59 23:59 23:59 23:59 Intake Total 3360 2530 1530 Output Total 1400 2800 1200 Balance 1960 -270 330 Meds/Results Medications: Active Medications Generic Name Dose Route Start Last Admin Trade Name Freq PRN Reason Stop Dose Admin Acetaminophen 650 mg 09/15/19 04:42 Tylenol Tablet PO Q4H PRN Pain Calcium Carbonate 200 mg 09/15/19 22:42 09/15/19 23:21 Tums PO 200 mg Q6H PRN Administration Indigestion Cyclobenzaprine HCl 10 mg 09/14/19 13:23 Flexeril PO BID PRN Muscle Spasm Vancomycin HCl 1,750 mg in 500 mls @ 250 mls/hr 09/16/19 00:00 09/16/19 12:23 Vancomycin 1,750 Mg/D5w 500 Ml IVPB 250 mls/hr Q12H [facility] Administration Naproxen 500 mg 09/14/19 17:21 09/14/19 20:42 Naproxen PO 500 mg BIDWM PRN Administration PAIN 4-6 Radiology Results: ITS Impressions Knee X-Ray 09/14/19 07:29 IMPRESSION: 1. XR knee LT min 4V exam without acute osseous findings. 2. Anterior soft tissue swelling. Possible prepatellar bursitis. Labs Labs: Laboratory Results - last 24 hr 09/15/19 09/16/1909/15
--- NOTE | 2019-09-16 16:38 | WPDINFPN2 ---
Progress Note: A&P Assessment and Plan (1) Abscess of bursa, left knee: Code(s): M71.062 - Abscess of bursa, left knee Status: Acute Assessment and Plan: S aureus septic bursitis L kne0, POD # 2 and doing well 2. PCN allergy, with rash. Ok for cephalosporin REC Vanc #3. ok oral rx tomorrow based on susceptibilities: Septra DS bid if MRSA, or Cephalexin 500 mg qid if Oxacillin susceptible. Would continue for 10 additional days, through 09/26/19. Will sign off, thanks Subjective Date/time seen: 09/16/19 16:38 Interval history: no pain Exam Narrative: Exam Narrative: afebrile Const: General: no acute distress Skin: General skin exam: normal color and no rashes or lesions noted Extrem: Other: L mid leg dressed, no proximal nor distal erythema nor tenderness Objective Data Vital Signs Vital Signs: Vital Signs - 24 hr 09/15/19 22:00 09/16/19 06:00 09/16/19 08:00 Temperature 37.0 C 36.6 C Pulse Rate 72 58 L 58 L Respiratory Rate 18 20 20 Blood Pressure 138/79 108/69 Pulse Oximetry 96 98 98 09/16/19 14:00 Temperature 36.7 C Pulse Rate 64 Respiratory Rate 18 Blood Pressure 136/83 Pulse Oximetry 98 Intake/Output Intake/Output: Intake & Output 09/13/19 09/14/19 09/15/19 09/16/19 23:59 23:59 23:59 23:59 Intake Total 3360 2530 2030 Output Total 1400 2800 1200 Balance 1960 -270 830 Meds/Results Medications: Active Medications Generic Name Dose Route Start Last Admin Trade Name Freq PRN Reason Stop Dose Admin Acetaminophen 650 mg 09/15/19 04:42 Tylenol Tablet PO Q4H PRN Pain Albuterol 2 puff 09/16/19 14:31 Proventil Hfa INHALATION QIDRT PRN Shortness Of Breath Calcium Carbonate 200 mg 09/15/19 22:42 09/15/19 23:21 Tums PO 200 mg Q6H PRN Administration Indigestion Cyclobenzaprine HCl 10 mg 09/14/19 13:23 Flexeril PO BID PRN Muscle Spasm Vancomycin HCl 1,750 mg in 500 mls @ 250 mls/hr 09/16/19 00:00 09/16/19 14:20 Vancomycin 1,750 Mg/D5w 500 Ml IVPB Infused Q12H [facility] Infusion Naproxen 500 mg 09/14/19 17:21 09/14/19 20:42 Naproxen PO 500 mg BIDWM PRN Administration PAIN 4-6 Radiology Results: ITS Impressions Knee X-Ray 09/14/19 07:29 IMPRESSION: 1. XR knee LT min 4V exam without acute osseous findings. 2. Anterior soft tissue swelling. Possible prepatellar bursitis. Labs Labs: Laboratory Results - last 24 hr 09/16/19 09/16/19 09/16/19 05:46 05:46 05:46 WBC 11.4 H RBC 3.70 L Hgb 12.0 L Hct 36.3 L MCV 98.1 MCH 32.4 MCHC 33.1 RDW 12.8 Plt Count 159 MPV 10.5 H Sodium 138 Potassium 4.1 Chloride 108 H Carbon Dioxide 26 Anion Gap 8.1 BUN 12 Creatinine 0.80 Estim Creat Clear Calc 92 Estimated GFR > 60 Glucose 96 Calcium 8.5 Total Bilirubin 0.2 AST 23 ALT 12 Alkaline Phosphatase 68 Total Protein 6.0 L Albumin 3.0 L HIV 1&2 Ab/P24 Ag 4thGn Negative
[2019-09-16 22:00] VITALS: BP 138/75; PULSE 64; RESP 18; TEMP 36.7; O2SAT 99
[2019-09-17 06:00] VITALS: BP 113/69; PULSE 56; RESP 16; TEMP 36.8; O2SAT 98
[2019-09-17 06:14] LABS: Hematocrit 38.2 % (42.0-52.0); Hemoglobin 12.9 g/dL (14.0-18.0); Mean Corpuscular HGB Conc 33.8 g/dl (32-36); Mean Corpuscular Hemoglobin 33.1 pg (26-34); Mean Corpuscular Volume 97.9 fl (80-100); Mean Platelet Volume 10.3 fl (7.4-10.4); Platelet Count Result 175 k/mm3 (150-375); Red Cell Distribution Width 12.6 % (11.5-14.5); White Blood Count 9.6 K/mm3 (4.5-10.0)
[2019-09-17 06:30] LABS: Anion Gap 9.9 mmol/L (7-16); Blood Urea Nitrogen 15 mg/dL (9-20); CRP 2.8 mg/dL (<1.0); Calcium 8.9 mg/dL (8.4-10.2); Carbon Dioxide 28 mmol/L (22-30); Chloride 104 mmol/L (98-107); Estimated CRCL calculation 92 ml/min; Estimated Glomerular Filt Rate > 60; Glucose 109 mg/dL (75-110); Potassium 4.9 mmol/L (3.4-5.0); Sodium 137 mmol/L (137-145)
--- NOTE | 2019-09-17 11:22 | PM.PNORT ---
Progress Note: A&P Assessment and Plan (1) Abscess of bursa, left knee: Code(s): M71.062 - Abscess of bursa, left knee Status: Acute Assessment and Plan: POD #3: I&D Left Prepatellar Bursa Infection ID consult appreciated. Transition to oral antibiotics starting today x10 days. Dressing changed. New dressing applied. Dressing to be changed again in 5 days. Patient to return to our office in 2 weeks for suture removal. Recommended light duty at work, note faxed at patient request. Follow up scheduled. (2) Tobacco dependence: Code(s): F17.200 - Nicotine dependence, unspecified, uncomplicated Status: Acute Assessment and Plan: Discussed importance of smoking cessation for optimal knee incision healing. Subjective Subjective Date/Time Seen: 09/17/19 0830 Patient doing well. No complaints of pain. Wants to go home. Review of Systems Constitutional: Constitutional: Denies chills, Denies fatigue, Denies lethargy, Denies night sweats and Denies weakness Eyes: Eyes: Reports no additional eye complaints and Denies blurry vision ENT: Reports Normal hearing present and Denies nasal discharge Cardiovascular: Cardiovascular: Denies chest pain, Denies lightheadedness and Denies palpitations Respiratory: Respiratory: Denies cough and Denies dyspnea Gastrointestinal: Gastrointestinal: Denies abdominal pain, Denies bloating, Denies diarrhea, Denies nausea and Denies vomiting Genitourinary: Genitourinary: Denies dysuria Musculoskeletal: Musculoskeletal: Reports as per HPI and Reports arthralgias (Left Knee ) Comments: improvement in pain of the left knee with AROM/PROM. Dressing intact Integumentary/Breasts: Skin/Breast: Denies swelling and Reports other (dressing c/d/i) Neurologic: Denies numbness Psychiatric: Psychiatric: Denies anxiety, Denies confusion and Denies depression Exam Const: General: comfortable and no acute distress Resp: Effort & Inspection: normal respiratory effort Cardio: Rate: regular rate Rhythm: regular rhythm GI: Inspection: non-distended Skin: Other: Dressing left knee c/d/i Neuro: General: gait normal (PWB LLE ) Cognition (Neuro): normal cognition Extrem: Left lower extremity: knee Details: normal ROM (AROM/PROM without pain today ) and foot (2+ pedal pulses. +ankle dorsiflexion/plantarflexion. Negative Talita's sign ) Details: no edema; no tenderness Other: Dressing removed. Incision well-approximated. New dressing applied. No surrounding redness/warmth or swelling. Psych: Mental Status: mental status grossly normal Affect: normal affect Objective Data Vital Signs Vital Signs: Vital Signs - 24 hr 09/16/19 14:00 09/16/19 22:00 09/17/19 06:00 Temperature 36.7 C 36.7 C 36.8 C Pulse Rate 64 64 56 L Respiratory Rate 18 18 16 Blood Pressure 136/83 138/75 113/69 Pulse Oximetry 98 99 98 Intake/Output Intake/Output: Intake & Output 09/14/19 09/15/19 09/16/19 09/17/19 23:59 23:59 23:59 23:59 Intake Total 3360 2530 2790 1100 Output Total 1400 2800 3500 1550 Balance 4479 -878 -229 -198 Meds/Results Medications: Active Medications Generic Name Dose Route Start Last Admin Trade Name Freq PRN Reason Stop Dose Admin Acetaminophen 650 mg 09/15/19 04:42 Tylenol Tablet PO Q4H PRN Pain Albuterol 2 puff 09/16/19 14:31 Proventil Hfa INHALATION QIDRT PRN Shortness Of Breath Calcium Carbonate 200 mg 09/15/19 22:42 09/15/19 23:21 Tums PO 200 mg Q6H PRN Administration Indigestion Cyclobenzaprine HCl 10 mg 09/14/19 13:23 Flexeril PO BID PRN Muscle Spasm Vancomycin HCl 1,750 mg in 500 mls @ 250 mls/hr 09/16/19 00:00 09/17/19 02:15 Vancomycin 1,750 Mg/D5w 500 Ml IVPB Infused Q12H [facility] Infusion Naproxen 500 mg 09/14/19 17:21 09/14/19 20:42 Naproxen PO 500 mg BIDWM PRN Administration PAIN 4-6 Radiology Results: ITS Impressions Kn
[2019-09-17 11:56] LABS: Vancomycin Trough 11.7 ug/mL (10.0-20.0)
--- NOTE | 2019-09-17 13:15 | PM.DS ---
DS: Admitting Diagnosis Admitting Diagnosis Admitting Diagnosis: Abscess of bursa, left knee DS: Discharge Diagnosis Discharge Diagnosis (1) Abscess of bursa, left knee: Code(s): M71.062 - Abscess of bursa, left knee Status: Acute Assessment and Plan: Discharge Summary Date of service 09/17/19: Mr. Stanton is a 59 y.o. male with PMH significant for current smoker and COPD who presented to the emergency department for the evaluation of left knee erythema, pain, and swelling. 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 He had no discrete trauma but did notice a small red area on the left anterior knee. He subsequently developed erythema, swelling, and pain at the left anterior knee. His pain became so severe that he was unable to bear weight. Initial workup in the emergency department revealed WBC 11,500, Hb 12.6, Hct 37.6, platelets 172, sodium 135, potassium 3.6, chloride 106, CO2 23, BUN 19, Cr 0.9, glucose 123, CRP 2.7, left knee xray with anterior soft tissue swelling suggestive of prepatellar bursitis and no acute osseous findings. He was treated empirically with IV vancomycin. Orthopedic surgery was consulted and he underwent incision and drainage with irrigation and excisional debridement of the left prepatellar bursa in the OR by Dr. Godwin 09/14/19. Purulence was noted while in the OR and cultures were obtained. Infectious disease was consulted and recommended continuation of IV vancomycin while awaiting cultures. The aerobic culture demonstrated MSSA so he was discharged on cephalexin for 10 days per infectious disease recommendations. His inicision was healing appropriately and his pain improved significantly. He was discharged in stable condition on the afternoon of 09/17/19. He was instructed to follow-up with orthopedic surgery and light duty was recommended per othopedic surgery. (2) Acute knee pain: Code(s): M25.569 - Pain in unspecified knee Status: Acute Assessment and Plan: As above. (3) COPD (chronic obstructive pulmonary disease): Code(s): J44.9 - Chronic obstructive pulmonary disease, unspecified Status: Acute Assessment and Plan: Not in acute exacerbation. Albuterol was continued as needed for shortness of breath. (4) Tobacco dependence: Code(s): F17.200 - Nicotine dependence, unspecified, uncomplicated Status: Acute Assessment and Plan: Smoking cessation was encouraged and risks of continued smoking were discussed which include worsening COPD and . He declined the need for a nicotine patch and expressed that he does not have any desire to quit. DS: Summary Hospital Course Reason for hospitalization: Left knee swollen, painful, and red Hospital Course: As above. Time spent discussing smoking cessation with patient: more than 10 minutes Status at Discharge Functional status at discharge: independent ambulation Overall status at discharge: patient is back to baseline Time Spent with Patient Time attestation: Total time spent providing and/or coordinating discharge services: 30 minutes Exam Narrative: Exam Narrative: Vitals at presentation: Temp Pulse Resp BP Pulse Ox 98.4 F 85 22 H 139/72 100 09/13/19 21:08 09/13/19 21:08 09/13/19 21:08 09/13/19 21:08 09/13/19 21:08 Vitals at discharge: Temp Pulse Resp BP Pulse Ox 98.2 F 56 L 16 113/69 98 09/17/19 06:00 09/17/19 06:00 09/17/19 06:00 09/17/19 06:00 09/17/19 06:00 General: Very pleasant, well-nourished, and well-developed 59 y.o. male lying in the semi-recumbent position in bed in no acute distress with his at the bedside. HEENT: Normocephalic and atraumatic. Sclgarfielde anicteri
== END 2019-09-17 14:30 | disposition home or self-care (01) | DRG 502 ==
LOC: ANHED 09-14 02:41 → ANH3MEDSUR 09-14 03:33
PROVIDERS: Orthopaedic Surgery; Physician Assistant; Admitting Provider Internal Medicine; Emergency Provider Emergency Medicine; PCP Physician Assistant; Visit Provider Physician Assistant
PROC: 0MBP0ZZ Excision of Left Knee Bursa and Ligament, Open Approach (ICD-10-PCS; principal; 2019-09-14 14:30)
DX: M71.062 Abscess of bursa, left knee (principal); B95.61 Methicillin susceptible Staphylococcus aureus infection as the cause of diseases classified elsewhere; J44.9 Chronic obstructive pulmonary disease, unspecified; K21.9 Gastro-esophageal reflux disease without esophagitis; Z90.49 Acquired absence of other specified parts of digestive tract; F17.200 Nicotine dependence, unspecified, uncomplicated
CPT/HCPCS: 36415; 73564; 80048; 80053; 80202; 82565; 83036; 84550; 85025; 85027; 85652; 86140; 86703; 87070; 87075; 87147; 87186; 87205; 96361; 96365; 99285; A9270; G0378; G0432; J0131; J1100; J2250; J2405; J2704; J3010; J3370; J7030; J7120

== ENCOUNTER 2019-10-29 07:23 | Outpatient (CLI) | payer OTHER, SELFPAY ==
--- NOTE | ~2019-10-29 | MR_ITS ---
EXAMINATION: MR shoulder LT wo con DATE: 10/29/2019 08:26 INDICATION: Left shoulder pain and weakness TECHNIQUE: Magnetic resonance imaging (MRI) of the left shoulder was performed without intravenous co ntrast. Sequences included axial PD-weighted FS FSE, coronal oblique PD-weighted FS FSE, coronal obli que T2-weighted FS FSE, sagittal PD-weighted FS FSE, and sagittal T1-weighted SE. COMPARISON: None. FINDINGS: Coracoacromial arch: Unfused meso acromial os acromiale with mild hypertrophic changes at the synchondrosis projecting sli ghtly inferiorly from the otherwise curved undersurface of the acromion. The coracoacromial ligament is normal. Mild acromioclavicular osteoarthritis with additional small inferiorly directed osteophyte s which remains separate from the underlying supraspinatus by a thin intervening fat plane. Rotator cuff: Supraspinatus and infraspinatus tendinopathy. Intrasubstance tear extending approximately 1.5 cm AP a long the middle facet footplate of the infraspinatus and conjoined portion of the supraspinatus and i nfraspinatus tendons. At its point of greatest thickness the tear appears to involve up to 1/3-1/2 of the tendon thickness. Mild subscapularis tendinopathy with additional small partial-thickness intras ubstance tear measuring approximately 5 mm AP along the lesser tuberosity footplate and involving up to one third of the tendon thickness. The teres minor tendon is normal. No asymmetric rotator cuff mu scle atrophy or abnormal signal. Biceps tendon, glenoid labrum and glenohumeral cartilage: There is a tear of the superior glenoid labrum beginning anteriorly at the 1:00 position and extendin g posteriorly to the 10:00 position. There is a longitudinal split tear along the intra-articular por tion of the otherwise normal long head biceps tendon. Glenohumeral cartilage is normal. Fluid: Physiologic amount of fluid in the glenohumeral joint and biceps tendon sheath. No loose osteochondra l bodies. Small amount of fluid in the subacromial/subdeltoid bursa consistent with mild bursitis. Bones: Normal marrow signal with no edema, fracture or abnormal marrow replacing process. IMPRESSION: 1. Mild rotator cuff tendinopathy with partial-thickness intrasubstance tears at the middle facet lionel tplate of the infraspinatus and conjoined supraspinatus/infraspinatus tendons and at the lesser tuber osity footplate of the subscapularis tendon. Tear of the superior to posterior superior glenoid labru m. 3. Optional split tear of the intra-articular long head biceps tendon. 4. Mild acromioclavicular osteoarthritis. 5. Os acromiale. 6. Mild subacromial/subdeltoid bursitis. Reviewed, dictated and finalized at location A. IMPRESSION: 1. Mild rotator cuff tendinopathy with partial-thickness intrasubstance tears a t the middle facet footplate of the infraspinatus and conjoined supraspinatus/i nfraspinatus tendons and at the lesser tuberosity footplate of the subscapulari s tendon. Tear of the superior to posterior superior glenoid labrum. 3. Optional split tear of the intra-articular long head biceps tendon. 4. Mild acromioclavicular osteoarthritis. 5. Os acromiale. 6. Mild subacromial/subdeltoid bursitis.
== END 2019-10-29 07:24 ==
PROVIDERS: PCP Physician Assistant; Visit Provider Orthopaedic Surgery
DX: M25.512 Pain in left shoulder (principal); M75.82 Other shoulder lesions, left shoulder; S46.012A Strain of muscle(s) and tendon(s) of the rotator cuff of left shoulder, initial encounter; S43.432A Superior glenoid labrum lesion of left shoulder, initial encounter; S46.112A Strain of muscle, fascia and tendon of long head of biceps, left arm, initial encounter; M19.012 Primary osteoarthritis, left shoulder; M75.52 Bursitis of left shoulder
CPT/HCPCS: 73221

== ENCOUNTER 2019-11-27 06:57 | Outpatient (CLI) | payer OTHER, SELFPAY ==
[2019-11-27 07:21] LABS: Basophils Percent Auto 0.5 % (0.2-1.2); Eosinophils Absolute Auto 0.2 K/mm3 (0-0.3); Eosinophils Percent Auto 2.8 % (0-4.4); Hematocrit 39.1 % (42.0-52.0); Hemoglobin 13.1 g/dL (14.0-18.0); Immature Granulocyte Absolute 0.03 K/mm3 (0.00-0.031); Immature Granulocyte Percent A 0.5 % (0-0.5); Lymphocytes Absolute Auto 2.03 K/mm3 (0.9-3.2); Lymphocytes Percent Auto 33.8 % (18.3-44.2); Mean Corpuscular HGB Conc 33.5 g/dl (32-36); Mean Corpuscular Volume 98.5 fl (80-100); Mean Platelet Volume 9.8 fl (7.4-10.4); Monocytes Absolute Auto 0.4 K/mm3 (0.1-0.6); Monocytes Percent Auto 7.2 % (2.6-8.5); Neutrophils Absolute Auto 3.3 K/mm3 (1.3-6.7); Neutrophils Percent Auto 55.2 % (45.5-73.1); Platelet Count Result 181 k/mm3 (150-375); Red Blood Count 3.97 M/mm3 (4.6-6.20); Red Cell Distribution Width 12.3 % (11.5-14.5)
[2019-11-27 07:45] LABS: CRP 1.7 mg/dL (<1.0)
== END 2019-11-27 06:58 | disposition home or self-care (01) ==
PROVIDERS: PCP Physician Assistant; Visit Provider Orthopaedic Surgery
DX: M70.42 Prepatellar bursitis, left knee (principal)
CPT/HCPCS: 36415; 85025; 86140

== ENCOUNTER 2019-11-30 02:41 | Outpatient (CLI) | payer OTHER, SELFPAY ==
[2019-11-30 18:16] LABS: SARS-CoV-2 RNA PCR Negative
== END 2019-11-30 02:42 | disposition home or self-care (01) ==
LOC: ANHCOVIDDT 02:41
PROVIDERS: PCP Physician Assistant; Visit Provider Orthopaedic Surgery
DX: Z01.812 Encounter for preprocedural laboratory examination (principal); Z20.828 Contact with and (suspected) exposure to other viral communicable diseases
CPT/HCPCS: 87635; C9803; U0003

== ENCOUNTER 2019-12-03 14:41 | Observation (INO) | payer OTHER, SELFPAY ==
[2019-11-27 13:03] VITALS: BMI 32.1
[2019-12-02] VITALS (14 sets, daily range): BP systolic 116–179; BP diastolic 69–97; PULSE 57–84; RESP 12–19; TEMP 35.6–37.1; O2SAT 96–100
--- NOTE | 2019-12-02 06:02 | ECG_ITS ---
Measurements Intervals Electra Rate: 65 P: 210 OR: 153 QRS: -24 QRSD: 96 T: 14 QT: 404 QTc: 423 Interpretive Statements SINUS RHYTHM DELAYED PRECORDIAL R/S TRANSITION ST ELEVATION IN ANTEROLATERAL LEADS- PROBABLY EARLY REPOLARIZATION INFERIOR INFARCT, AGE INDETERMINATE ABNORMAL ECG Electronically Signed On 12-02-2019 11:39:32 CDT by Jesse Lee D.O.
--- NOTE | 2019-12-02 07:21 | WPDHPUPDATE1 ---
History and Physical Update Update Date/Time: 12/02/19 07:21 History and Physical has been reviewed, including an updated exam of the patient. There are NO changes in the patient's condition. Risks, benefits, and alternatives have been discussed and questions answered. Patient agrees to proceed with procedure.
[2019-12-02] MEDS: CELECOXIB 200 MG CAPSULE PO (11:44)
[2019-12-02] MEDS: ACETAMINOPHEN 500 MG TABLET 1000 MG PO (11:44)
[2019-12-02] MEDS: LACTATED RINGERS 1,000 ML 30 ML IV CONT ×3 (11:45→14:13)
--- NOTE | 2019-12-02 11:55 | WPDHPUPDATE1 ---
History and Physical Update Update Date/Time: 12/02/19 11:55 History and Physical has been reviewed, including an updated exam of the patient. There are NO changes in the patient's condition. Risks, benefits, and alternatives have been discussed and questions answered. Patient agrees to proceed with procedure. we will proceed with incision and drainage with irrigation and debridement left pre patella bursae.
--- NOTE | 2019-12-02 11:58 | P.PNAN_ITS ---
Anes - Initial Pre Proc Eval Procedure: Operation Date: 12/02/19 13:00 Proposed Procedures p Left Knee Prepatellar Bursa Incision And Drainage - Ted Godwin MD Date/Time: 12/02/19 11:58 Surgeon: Ted Godwin MD Pre Op Diagnosis: Left Knee Prepatella Bursa Patient Data Age: 59 Gender: M Height: 5 ft 11 in Weight: 104.33 kg Allergies Allergy/AdvReac Type Severity Reaction Status Date / Time Penicillins Allergy Unknown Rash Verified 11/27/19 13:04 morphine AdvReac Confusion Verified 11/27/19 13:04 Home Medications Medication Instructions Recorded Confirmed Type cyclobenzaprine 10 mg PO BID PRN 09/13/19 11/27/19 History acetaminophen [Tylenol Extra 1,000 mg PO Q4H PRN 11/27/19 11/27/19 History Strength] Patient hx anesthesia problems: none Family hx anesthesia problems: none PMFSH Past Medical History Medical History Abscess History of right forearm abscess in 2004 History of left 3rd finger joint infection in 1983 Abscess of bursa, left knee Acute knee pain Cellulitis COPD (chronic obstructive pulmonary disease) GERD (gastroesophageal reflux disease) History of blood clots Nicotine dependence Prepatellar bursitis Tobacco dependence Surgical History Surgical History H/O hernia repair History of cardiac catheterization reportedly negative History of cholecystectomy Family History Family History Mother Lymphoma Diabetes mellitus Hypertension Father Heart disease COPD (chronic obstructive pulmonary disease) Social History Social History Social History: patient smokes 1 pack per day and has been doing so for 47 years. He has no interest in quitting. He does not do marijuana or drugs. 1-2 drinks per week. 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 He designates his , Rachelle, as his surrogate decision maker. He would like to be a full code but makes note that he does not want to be on prolonged life support if needed. Smoking packs per day: 1 Smoking cigarettes per day: 20.0 Years smoked: 47 Smoking pack-years: 47.00 Smoking status: Current every day smoker Tobacco type: cigarettes Alcohol intake: never Substance use: never Gender identity (if verbalized by the patient): Male Spiritual care concerns: No Anes - Eval Final PreProcedure Day of Procedure 12/02/19 11:58 Patient weight: normal Heart: regular rate and rhythm Lungs: clear to auscultation Airway: Mallampati scale class II Neurological: alert and oriented Last oral intake: >/= 8 hours ASA classification: III Emergent: no Anesthetic plan: proceed Anesthesia type and monitoring: general LMA and standard monitoring Informed Consent: The patient's anesthetic plan and its attendant risks and benefits were discussed with the patient/family/POA. Questions were solicited and answers provided to the satisfaction of the patient/family/POA.
--- NOTE | 2019-12-02 13:53 | PM.PROC ---
Procedure Note - Detailed Date of procedure: 12/02/19 Pre-op diagnosis: Left Knee Prepatella Bursa Post-op diagnosis: same Procedure performed: I AND D WITH IRRIGATION AND DEBRIDEMENT LEFT PRE PATELLA BURSAE Description of procedure: THE PATIENT WAS TAKEN TO THE OR. THE LEFT LOWER EXTREMITY WAS PREPPED AND DRAPED FROM THE TOES TO THE THIGH AN INCISION WAS MADE OVER THE OLD INCISION DOWN THROUGH THE SUB CUTANEOUS TISSUE AND INTO THE PRE PATELLA SPACE. THER WAS CLOUDY FLUID FROM THE SPACE. THE BURSAL TISSUE AND FLUID WERE SENT FOR CULTURE. THE BURSAE WAS THEN DEBRIDED. AN EXCISIONAL DEBRIDEMENT WAS PREFORMED TO THE LEVEL OF THE PERIOSTEUM AND THE PATELLA TENDON. THE PATELLA TENDON WAS INTACT. THE PRE PATELLA SPACE WAS THEN IRRIGATED WITH ANTIBIOTIC IRRIGATION. THE TOURNEQUET WAS DEFLATED. THE BLEEDERS WERE CAUTERIZED. A RADHIKA DRAIN WAS PLACED IN THE SPACE. THE SKIN WAS APPROXIMATED WITH 3-0 PROLINE. STERILE DRESSING WAS APPLIED. PATIENT WAS EXTUBATED. Surgeon: Ted Godwin MD
[2019-12-02] MEDS: fentaNYL CITRATE INJ (*CRX) 100 MCG/2 ML VIAL 25 MCG IV PUSH ×8 (13:54→14:41)
[2019-12-02] MEDS: HYDROmorphone HCL INJ (*CRX) 1 MG/ML SYR 0.5 MG IV PUSH ×3 (15:01→15:15)
--- NOTE | 2019-12-02 15:34 | SUR.PREOP ---
PT STATES DOES NOT NEED CRUTCHES OR TRAINING. PT IS S/P LT KNEE I&D 2MO AGO (SAME PROCEDURE TODAY) AND HAD TRAINING AT THAT TIME
[2019-12-02] MEDS: HYDROcodone/acetaminophen (*CRX) 7.5-325 MG TABLET 1 TAB PO (16:50)
[2019-12-02] MEDS: diazePAM (*CRX) 5 MG TABLET PO (18:46)
[2019-12-02] MEDS: oxyCODONE/ACETAMINOPHEN (*CRX) 5-325 MG TABLET 2 TABLET PO ×2 (19:38→23:53)
[2019-12-03] VITALS: BP 132/63; PULSE 52; RESP 18; TEMP 36.4; O2SAT 97
--- NOTE | ~2019-12-03 | XR_ITS ---
EXAMINATION: XR chest PICC line DATE: 12/04/2019 08:58 INDICATION: Central line placement. TECHNIQUE: A single frontal view of the chest was obtained. COMPARISON: Chest single view 112/15, chest CT 03/01/2014 FINDINGS: There is no pneumonia, pleural effusion, or pneumothorax. There is a large hiatal hernia. A left upper extremity peripherally inserted central venous catheter (PICC) is seen with tip at the wagoner perior cavoatrial junction. A curvilinear density overlies left upper chest that may be surgical kincaid ge. IMPRESSION: 1. PICC tip at superior cavoatrial junction. 2. Large hiatal hernia. Reviewed, dictated and finalized at location A.
[2019-12-03 01:13] VITALS: BP 153/54; PULSE 60; RESP 12; TEMP 36.8; O2SAT 95
[2019-12-03 05:13] VITALS: BP 121/66; PULSE 51; RESP 16; TEMP 36.2; O2SAT 98
[2019-12-03] MEDS: oxyCODONE/ACETAMINOPHEN (*CRX) 5-325 MG TABLET 2 TABLET PO ×2 (06:24→16:29)
--- NOTE | 2019-12-03 09:44 | PM.PNORT ---
Progress Note: A&P Assessment and Plan (1) Abscess of bursa, left knee: Code(s): M71.062 - Abscess of bursa, left knee Status: Acute Assessment and Plan: POD #1: I&D left prepatellar bursa Continue IV antibiotics. Awaiting ID consult at this time. Continue dressing. Monitor drain output. Strick I&Os. WBAT LLE. Walker as needed for pressure offloading. Pain control. Ice knee. Elevate. Dispo: Pending further recommendations from ID. Subjective Subjective Date/Time Seen: 12/03/19 09:00 POD #1: I&D Left Prepatella Bursa Complaints of pain left knee. Drain in place. Otherwise, feeling well. Review of Systems Review of Systems: All systems reviewed & are unremarkable except as noted in HPI and below Constitutional: Constitutional: Reports as per HPI Cardiovascular: Cardiovascular: Denies chest pain and Denies lightheadedness Respiratory: Respiratory: Denies cough and Denies dyspnea Gastrointestinal: Gastrointestinal: Denies abdominal pain, Denies bloating, Denies diarrhea, Denies nausea and Denies vomiting Genitourinary: Genitourinary: Denies dysuria Musculoskeletal: Comments: left knee pain/swelling. Exam Const: General: comfortable and no acute distress Resp: Effort & Inspection: normal respiratory effort Cardio: Rate: regular rate Rhythm: regular rhythm GI: Inspection: non-distended GI Palp: No Tenderness to palpation present (GI) Skin: Other: dressing left knee c/d/i. Neuro: General: No gait normal (antalgic LLE ) Cognition (Neuro): normal cognition Extrem: Other: Left knee with dressing c/d/i. Drain in place with serousanguinous drainage. Negative Talita's Sign. 2+ pedal pulses. +ankle dorsiflexion/plantarflexion. Psych: Mental Status: mental status grossly normal Objective Data Vital Signs Vital Signs: Vital Signs - 24 hr 12/02/19 11:30 12/02/19 13:45 12/02/19 14:00 Temperature 36.6 C 36.2 C L Pulse Rate 72 84 73 Respiratory Rate 18 19 16 Blood Pressure 128/78 179/97 H 153/91 H Pulse Oximetry 100 100 100 12/02/19 14:15 12/02/19 14:30 12/02/19 14:45 Temperature Pulse Rate 77 71 67 Respiratory Rate 18 12 16 Blood Pressure 142/75 H 147/76 H 116/77 Pulse Oximetry 98 100 99 12/02/19 15:00 12/02/19 15:15 12/02/19 15:28 Temperature 35.6 C L Pulse Rate 68 68 59 L Respiratory Rate 18 16 18 Blood Pressure 132/83 132/75 129/81 Pulse Oximetry 98 97 98 12/02/19 15:43 12/02/19 16:13 12/02/19 17:13 Temperature 35.6 C L 35.8 C L 36.0 C L Pulse Rate 65 61 65 Respiratory Rate 18 18 18 Blood Pressure 145/96 H 119/70 121/75 Pulse Oximetry 96 96 97 12/02/19 19:59 12/02/19 20:00 12/03/19 00:00 Temperature 37.1 C 36.4 C L Pulse Rate 57 L 57 L 52 L Respiratory Rate 18 18 18 Blood Pressure 135/69 132/63 Pulse Oximetry 96 96 97 12/03/19 01:13 12/03/19 05:13 Temperature 36.8 C 36.2 C L Pulse Rate 60 51 L Respiratory Rate 12 16 Blood Pressure 153/54 H 121/66 Pulse Oximetry 95 98 Intake/Output Intake/Output: Intake & Output 11/30/19 12/01/19 12/02/19 12/03/19 23:59 23:59 23:59 23:59 Intake Total 2880 1050 Output Total 35 1410 Balance 2845 -360 Meds/Results Medications: Active Medications Generic Name Dose Route Start Last Admin Trade Name Freq PRN Reason Stop Dose Admin Acetaminophen 650 mg 12/02/19 15:28 Acetaminophen 325 Mg Tablet PO Q6H PRN Pain Rated 1-3 Hydrocodone Bitart/Acetaminophen 1 tab 12/02/19 15:28 12/02/19 16:50 Hydrocodone/Acetaminophen (*Crx) 7.5-325 Mg Tablet PO 1 tab Q6H PRN Administration Pain Rated 4-6 Diazepam 5 mg 12/02/19 15:28 12/02/19 18:46 Diazepam (*Crx) 5 Mg Tablet PO 5 mg Q8H PRN Administration Muscle Spasm Vancomycin HCl 1,000 mg in 250 mls @ 250 mls/hr 12/03/19 01:00 12/03/19 02:37 Vancomycin 1,000 Mg/D5w 250 Ml IVPB 12/03/19 13:59 Infused Q12H [facility] Infusion Magnesium Hydroxide 30 ml 12/02/19 15:28 Magnesium Hydroxide
[2019-12-03 10:00] VITALS: BP 136/65; PULSE 61; RESP 16; TEMP 36.1; O2SAT 99
[2019-12-03] MEDS: HYDROcodone/acetaminophen (*CRX) 7.5-325 MG TABLET 1 TAB PO ×2 (10:59→23:17)
--- NOTE | 2019-12-03 13:58 | WPDINFPN2 ---
Progress Note: A&P Assessment and Plan (1) Prepatellar bursitis: Qualifiers: Laterality: left Qualified Code(s): M70.42 - Prepatellar bursitis, left knee Code(s): M70.40 - Prepatellar bursitis, unspecified knee Status: Acute Assessment and Plan: 1. Prior NICOLAS septic bursitis, resolved 2. Secondary bursitis with skin xavi (not MRSA), due to compromised skin/SQ tissue integrity and due to tobacco. POD # 1 new debridement REC Vanc # 2 / 15 days, through 12/15. PharmD dosing inpatient, target trough 10-15. Then 4 weeks oral doxycycline Subjective Date/time seen: 12/03/19 13:58 Objective Data Vital Signs Vital Signs: Vital Signs - 24 hr 12/02/19 14:00 12/02/19 14:15 12/02/19 14:30 Temperature Pulse Rate 73 77 71 Respiratory Rate 16 18 12 Blood Pressure 153/91 H 142/75 H 147/76 H Pulse Oximetry 100 98 100 12/02/19 14:45 12/02/19 15:00 12/02/19 15:15 Temperature Pulse Rate 67 68 68 Respiratory Rate 16 18 16 Blood Pressure 116/77 132/83 132/75 Pulse Oximetry 99 98 97 12/02/19 15:28 12/02/19 15:43 12/02/19 16:13 Temperature 35.6 C L 35.6 C L 35.8 C L Pulse Rate 59 L 65 61 Respiratory Rate 18 18 18 Blood Pressure 129/81 145/96 H 119/70 Pulse Oximetry 98 96 96 12/02/19 17:13 12/02/19 19:59 12/02/19 20:00 Temperature 36.0 C L 37.1 C Pulse Rate 65 57 L 57 L Respiratory Rate 18 18 18 Blood Pressure 121/75 135/69 Pulse Oximetry 97 96 96 12/03/19 00:00 12/03/19 01:13 12/03/19 05:13 Temperature 36.4 C L 36.8 C 36.2 C L Pulse Rate 52 L 60 51 L Respiratory Rate 18 12 16 Blood Pressure 132/63 153/54 H 121/66 Pulse Oximetry 97 95 98 12/03/19 10:00 Temperature 36.1 C L Pulse Rate 61 Respiratory Rate 16 Blood Pressure 136/65 Pulse Oximetry 99 Intake/Output Intake/Output: Intake & Output 11/30/19 12/01/19 12/02/19 12/03/19 23:59 23:59 23:59 23:59 Intake Total 2880 2009 Output Total 1410 Balance 2845 600 Meds/Results Medications: Active Medications Generic Name Dose Route Start Last Admin Trade Name Freq PRN Reason Stop Dose Admin Acetaminophen 650 mg 12/02/19 15:28 Acetaminophen 325 Mg Tablet PO Q6H PRN Pain Rated 1-3 Hydrocodone Bitart/Acetaminophen 1 tab 12/02/19 15:28 12/03/19 10:59 Hydrocodone/Acetaminophen (*Crx) 7.5-325 Mg Tablet PO 1 tab Q6H PRN Administration Pain Rated 4-6 Diazepam 5 mg 12/02/19 15:28 12/02/19 18:46 Diazepam (*Crx) 5 Mg Tablet PO 5 mg Q8H PRN Administration Muscle Spasm Vancomycin HCl 1,000 mg in 250 mls @ 250 mls/hr 12/03/19 01:00 12/03/19 13:11 Vancomycin 1,000 Mg/D5w 250 Ml IVPB 12/03/19 13:59 200 mls/hr Q12H CHICHO Administration Magnesium Hydroxide 30 ml 12/02/19 15:28 Magnesium Hydroxide Susp 30 Ml Udc PO BID PRN Constipation Morphine Sulfate 3 mg 12/02/19 15:28 Morphine Sulfate (*Crx) 4 Mg/Ml Inj IV PUSH Q3H PRN Pain Rated 7-10 Ondansetron HCl 4 mg 12/02/19 15:28 Ondansetron Inj 4 Mg/2 Ml Vial IV PUSH Q4H PRN Nausea And Vomiting Oxycodone/Acetaminophen 2 tablet 12/02/19 15:28 12/03/19 06:24 Oxycodone/Acetaminophen (*Crx) 5-325 Mg Tablet PO 2 tablet Q4H PRN Administration Breakthrough Pain
[2019-12-03 14:00] VITALS: BP 130/65; PULSE 62; RESP 20; TEMP 36.3; O2SAT 99
--- NOTE | 2019-12-03 14:54 | PC.NURSE ---
Iv access nurse notified of PICC line insertion. Nurse stated she will come place 12/04/19 at 0700.
[2019-12-03 15:44] LABS: Estimated CRCL calculation 92 ml/min; Estimated Glomerular Filt Rate > 60
--- NOTE | 2019-12-03 16:26 | CONS_ITS ---
DATE OF CONSULTATION: 12/03/2019 REASON FOR CONSULTATION: Septic bursitis. HISTORY OF PRESENT ILLNESS: A 59-year-old male who was here at the end of August with NICOLAS, septic bursitis of the left knee due to knee trauma. He had debridement performed, received IV followed by oral antibiotics in the form of dicloxacillin for 10 days. He received a refill in mid September several days after his initial prescription , due to swelling of the knee. He then developed a sinus tracts toward the end of September, which I drained spontaneously. This continued to drain and he had no evidence of ongoing infection on several office visits during the month of October. However, [id number] weeks prior to admission, he developed worsened swelling now with redness over the knee and there is no further drainage. He had aspiration of the subcu tissues with cultures as noted below. He was admitted to the hospital electively yesterday and he underwent irrigation, debridement of the left knee prepatellar bursa. Findings included cloudy fluid in the bursal space. Debridement was performed to the level of the periosteum in the patellar tendon. RADHIKA was left in place and is now postop. He has been given vancomycin since yesterday. No other recent antibiotics. No fevers, chills, or sweats. He denies any trauma. Since his hospital discharge in August, he has avoided putting any pressure on the left knee, though he does place his right knee up against the floor while at work, bending the left knee is difficult for him at work due to sensation of swelling in the left knee. ALLERGIES: PENICILLIN CAUSED RASH. HABITS: Ongoing tobacco 1 pack per day. Social drinker. PRESENT MEDICATIONS: No immunosuppressants. PAST MEDICAL HISTORY: Cholecystectomy, hernia repair, cardiac cath, GERD, COPD, and previous right upper extremity abscess. REVIEW OF SYSTEMS: Constitutional, musculoskeletal, skin, GI, and respiratory otherwise negative. FAMILY HISTORY: Not pertinent to his present illness. 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 No family at the bedside. PHYSICAL EXAMINATION: GENERAL: This is a middle-aged male, who appears older than his actual age. No acute distress. VITAL SIGNS: Afebrile, 136/65, 61, 16, 99% on room air. SKIN: Warm and dry. No generalized rash. No erythroderma. EENT: Conjunctivae are normal. Oral mucosa is also normal. NECK: No masses. LUNGS: Clear to auscultation. CARDIAC: Regular rate and rhythm. No murmur, gallop. ABDOMEN: Nontender, soft. No organomegaly. No masses. EXTREMITIES: No clubbing, cyanosis, edema. Left upper extremity IV site appropriate. MUSCULOSKELETAL: He has left knee, thigh and calf all dressed. He has a RADHIKA drain with thin bloody discharge. LABORATORY DATA: From the office 11/25/2019, propionibacterium, coagulase-negative Staph and corynebacterium, Gram stain, moderate white cells, few gram variable bacilli. From the operating room yesterday, few white cells, no organisms seen, on one specimen and another with moderate white cells, no organisms seen. His white blood cell count normal 6.0, hemoglobin 13.1, platelets are 181, differential is normal. Chemistry panel not repeated. CRP is 1.7 down from 2.8 at the end of August. Synovial fluid from the office, 11/24 yellow cloudy, 162,000 red cells, 7637 white cells, 85% PMNs, no crystals, glucose 26, sepulveda virus assay 11/30/2019 was nonreactive. RADIOLOGY: Not redone. ASSESSMENT: 1. Oxacillin susceptible Staph aureus, septic bursitis, August 2019, this original infection has resolved. 2. Secondary infection same site due to skin xavi, identity above. His secondary infections due to compromised skin integrity and subcu tissue also due to to
[2019-12-03 21:59] VITALS: BP 114/54; PULSE 60; RESP 18; TEMP 37.1; O2SAT 95
[2019-12-04 05:59] VITALS: BP 136/73; PULSE 57; RESP 18; TEMP 36.9; O2SAT 97
[2019-12-04] MEDS: HYDROcodone/acetaminophen (*CRX) 7.5-325 MG TABLET 1 TAB PO ×2 (06:25→12:02)
[2019-12-04] MEDS: LIDOCAINE HCL 1% PF INJ 5 ML VIAL INFILTRATE (08:10)
--- NOTE | 2019-12-04 10:35 | PM.PNORT ---
Progress Note: A&P Assessment and Plan (1) Abscess of bursa, left knee: Code(s): M71.062 - Abscess of bursa, left knee Status: Acute Assessment and Plan: POD #2: I&D left prepatellar bursa Patient doing well. Would like to go home at this time. He is being followed by infectious disease who has recommended IV antibiotics through December 15. Dr. Gambino prescribing Vancomycin. Will defer antibiotic treatment as an outpatient to infectious disease doctor. The drain was pulled today, no active drainage. Incision well approximated, no signs of dehiscence. Patient with active and passive range of motion of the left knee without pain. No surrounding redness, warmth or swelling. Mepilex Silver dressing applied and gauze applied to drain site. Patient may continue weight-bearing as tolerated of the left lower extremity, walker as needed for pressure offloading. Pain control, ice and elevation. PICC line in place. Plan for discharge today pending home infusion finalization. Subjective Subjective Date/Time Seen: 12/04/19 10:35 POD #2: I&D Left Prepatella Bursa No new complaints. Feeling well. Wants to go home. Review of Systems Review of Systems: All systems reviewed & are unremarkable except as noted in HPI and below Constitutional: Constitutional: Reports as per HPI Cardiovascular: Cardiovascular: Denies chest pain and Denies lightheadedness Respiratory: Respiratory: Denies cough and Denies dyspnea Gastrointestinal: Gastrointestinal: Denies abdominal pain, Denies bloating, Denies diarrhea, Denies nausea and Denies vomiting Genitourinary: Genitourinary: Denies dysuria Musculoskeletal: Comments: left knee pain/swelling. Exam Const: General: comfortable and no acute distress Resp: Effort & Inspection: normal respiratory effort Cardio: Rate: regular rate Rhythm: regular rhythm GI: Inspection: non-distended GI Palp: No Tenderness to palpation present (GI) Skin: Other: dressing left knee c/d/i. Neuro: General: No gait normal (antalgic LLE ) Cognition (Neuro): normal cognition Extrem: Other: Incision well-approximated. Drain pulled. No active drainage. Negative Talita's Sign. 2+ pedal pulses. +ankle dorsiflexion/plantarflexion. Psych: Mental Status: mental status grossly normal Objective Data Vital Signs Vital Signs: Vital Signs - 24 hr 12/03/19 14:00 12/03/19 21:59 12/04/19 05:59 Temperature 36.3 C L 37.1 C 36.9 C Pulse Rate 62 60 57 L Respiratory Rate 20 18 18 Blood Pressure 130/65 114/54 L 136/73 Pulse Oximetry 99 95 97 Intake/Output Intake/Output: Intake & Output 12/01/19 12/02/19 12/03/19 12/04/19 23:59 23:59 23:59 23:59 Intake Total 2880 3400 1350 Output Total 35 1415 Balance 2845 1985 1350 Meds/Results Medications: Active Medications Generic Name Dose Route Start Last Admin Trade Name Freq PRN Reason Stop Dose Admin Acetaminophen 650 mg 12/02/19 15:28 Acetaminophen 325 Mg Tablet PO Q6H PRN Pain Rated 1-3 Hydrocodone Bitart/Acetaminophen 1 tab 12/02/19 15:28 12/04/19 06:25 Hydrocodone/Acetaminophen (*Crx) 7.5-325 Mg Tablet PO 1 tab Q6H PRN Administration Pain Rated 4-6 Diazepam 5 mg 12/02/19 15:28 12/02/19 18:46 Diazepam (*Crx) 5 Mg Tablet PO 5 mg Q8H PRN Administration Muscle Spasm Doxycycline Hyclate 100 mg 12/17/19 09:00 Doxycycline Hyclate 100 Mg Tablet PO 01/14/20 09:01 Q12HR CHICHO Vancomycin HCl 1,500 mg in 500 mls @ 333.333 mls/hr 12/04/19 00:00 12/04/19 10:02 Vancomycin 1,500 Mg/D5w 500 Ml IVPB 333.3 mls/hr Q12H CHICHO Administration Magnesium Hydroxide 30 ml 12/02/19 15:28 Magnesium Hydroxide Susp 30 Ml Udc PO BID PRN Constipation Morphine Sulfate 3 mg 12/02/19 15:28 Morphine Sulfate (*Crx) 4 Mg/Ml Inj IV PUSH Q3H PRN Pain Rated 7-10 Ondansetron HCl 4 mg 12/02/19 15:28 Ondansetron Inj 4 Mg/2 Ml Vial IV PUSH Q4H PRN
[2019-12-04] MEDS: CENTRAL LINE FLUSH 10 ML IV PUSH (12:03)
--- NOTE | 2019-12-04 12:45 | WPDINFPN2 ---
Progress Note: A&P Assessment and Plan (1) Prepatellar bursitis: Qualifiers: Laterality: left Qualified Code(s): M70.42 - Prepatellar bursitis, left knee Code(s): M70.40 - Prepatellar bursitis, unspecified knee Status: Acute Assessment and Plan: 1. Prior NICOLAS septic bursitis, resolved 2. Secondary bursitis with skin xavi (not MRSA), due to compromised skin/SQ tissue integrity and due to tobacco. POD # 2 new debridement, intraoperative cultures ngsf REC Vanc # 3 / 15 days, through 12/15. PharmD dosing inpatient and myself once he is outpatient, target trough 10-15. Then 4 weeks oral doxycycline. PICC is in place, Ok discharge once all arranged. Subjective Date/time seen: 12/04/19 12:45 Interval history: pain under control, hopes to go home today Exam Narrative: Exam Narrative: afebrile Const: General: no acute distress Eyes: General: appearance normal, both eyes and all related structures GI: Inspection: non-distended GI Palp: Yes Soft to palpation and No Tenderness to palpation present (GI) Skin: General skin exam: normal color and no rashes or lesions noted Extrem: Other: left knee with anterior dressing, no erythema nor sinus tracts nor tenderness Objective Data Vital Signs Vital Signs: Vital Signs - 24 hr 12/03/19 14:00 12/03/19 21:59 12/04/19 05:59 Temperature 36.3 C L 37.1 C 36.9 C Pulse Rate 62 60 57 L Respiratory Rate 20 18 18 Blood Pressure 130/65 114/54 L 136/73 Pulse Oximetry 99 95 97 Intake/Output Intake/Output: Intake & Output 12/01/19 12/02/19 12/03/19 12/04/19 23:59 23:59 23:59 23:59 Intake Total 2880 3400 1850 Output Total 35 1415 Balance 2845 1985 1850 Meds/Results Medications: Active Medications Generic Name Dose Route Start Last Admin Trade Name Freq PRN Reason Stop Dose Admin Acetaminophen 650 mg 12/02/19 15:28 Acetaminophen 325 Mg Tablet PO Q6H PRN Pain Rated 1-3 Hydrocodone Bitart/Acetaminophen 1 tab 12/02/19 15:28 12/04/19 12:02 Hydrocodone/Acetaminophen (*Crx) 7.5-325 Mg Tablet PO 1 tab Q6H PRN Administration Pain Rated 4-6 Diazepam 5 mg 12/02/19 15:28 12/02/19 18:46 Diazepam (*Crx) 5 Mg Tablet PO 5 mg Q8H PRN Administration Muscle Spasm Doxycycline Hyclate 100 mg 12/17/19 09:00 Doxycycline Hyclate 100 Mg Tablet PO 01/14/20 09:01 Q12HR CHICHO Vancomycin HCl 1,500 mg in 500 mls @ 333.333 mls/hr 12/04/19 00:00 12/04/19 11:33 Vancomycin 1,500 Mg/D5w 500 Ml IVPB Infused Q12H CHICHO Infusion Magnesium Hydroxide 30 ml 12/02/19 15:28 Magnesium Hydroxide Susp 30 Ml Udc PO BID PRN Constipation Morphine Sulfate 3 mg 12/02/19 15:28 Morphine Sulfate (*Crx) 4 Mg/Ml Inj IV PUSH Q3H PRN Pain Rated 7-10 Ondansetron HCl 4 mg 12/02/19 15:28 Ondansetron Inj 4 Mg/2 Ml Vial IV PUSH Q4H PRN Nausea And Vomiting Oxycodone/Acetaminophen 2 tablet 12/02/19 15:28 12/03/19 16:29 Oxycodone/Acetaminophen (*Crx) 5-325 Mg Tablet PO 2 tablet Q4H PRN Administration Breakthrough Pain Sodium Chloride 10 ml 12/04/19 14:00 12/04/19 12:03 Central Line Flush IV PUSH 10 ml Q8HR CHICHO Administration Sodium Chloride 10 ml 12/04/19 09:49 Central Line Flush IV PUSH PRN PRN with TPN bag changes Sodium Chloride 20 ml 12/04/19 09:49 Central Line Flush IV PUSH PRN PRN after blood draws Radiology Results: ITS Impressions Chest X-Ray 12/04/19 09:03 IMPRESSION: 1. PICC tip at superior cavoatrial junction. 2. Large hiatal hernia. Labs Labs: Laboratory Results - last 24 hr 12/03/19 15:18 Creatinine 0.80 Estim Creat Clear Calc 92 Estimated GFR > 60
[2019-12-04 13:26] VITALS: BP 145/74; PULSE 62; RESP 18; TEMP 36.5; O2SAT 97
--- NOTE | 2019-12-04 13:40 | PM.DS ---
DS: Admitting Diagnosis Admitting Diagnosis Admitting Diagnosis: Left Knee Prepatella Bursa DS: Discharge Diagnosis Discharge Diagnosis (1) Abscess of bursa, left knee: Code(s): M71.062 - Abscess of bursa, left knee Status: Acute Assessment and Plan: POD #2: I&D left prepatellar bursa Patient doing well. Would like to go home at this time. He is being followed by infectious disease who has recommended IV antibiotics through December 15. Dr. Gambino prescribing Vancomycin. Will defer antibiotic treatment as an outpatient to infectious disease doctor. The drain was pulled today, no active drainage. Incision well approximated, no signs of dehiscence. Patient with active and passive range of motion of the left knee without pain. No surrounding redness, warmth or swelling. Mepilex Silver dressing applied and gauze applied to drain site. Patient may continue weight-bearing as tolerated of the left lower extremity, walker as needed for pressure offloading. Pain control, ice and elevation. PICC line in place. Plan for discharge today pending home infusion finalization. DS: Summary Hospital Course Reason for hospitalization: Infected prepatellar bursitis. Hospital Course: 59-year-old male admitted for recurrent reinfected prepatellar bursitis. He underwent an I and D in the operating room by Dr. Godwin. Infectious Disease was consulted. It was determined that the patient would go home with IV antibiotics through December 16, 2019. A PICC line was placed. Home infusion was set up. If patient will go home on vancomycin 1.5 g IV piggyback every 12 hours through December 16, 2019. He will then transition to oral antibiotics x4 weeks per Dr. gambino. He will return to our office in approximately 2 weeks for suture removal. He has a Mepilex silver dressing in place in the interim which he is able to shower with. Vital signs stable upon discharge. Patient with active and passive range of motion of the left knee without pain at this time. Follow-up appointment planned. Status at Discharge Functional status at discharge: independent ambulation Overall status at discharge: patient is progressing back to baseline Time Spent with Patient Time attestation: Total time spent providing and/or coordinating discharge services: Exam Const: General: comfortable and no acute distress Resp: Effort & Inspection: normal respiratory effort Cardio: Rate: regular rate Rhythm: regular rhythm GI: Inspection: non-distended GI Palp: No Tenderness to palpation present (GI) Skin: Other: dressing left knee c/d/i. Neuro: General: No gait normal (antalgic LLE ) Cognition (Neuro): normal cognition Extrem: Other: Incision well-approximated. Drain pulled. No active drainage. Negative Talita's Sign. 2+ pedal pulses. +ankle dorsiflexion/plantarflexion. Psych: Mental Status: mental status grossly normal DS: Data Data Completed and Pending Labs on day of discharge: Labs from last 24 hours 12/03/19 15:18 Creatinine 0.80 Estim Creat Clear Calc 92 Estimated GFR > 60 Preliminary micro results at discharge 12/02/19 12:45 Anaerobic Culture - Preliminary Knee Left Aerobic Culture - Preliminary 12/02/19 12:51 Anaerobic Culture - Preliminary Knee Left Aerobic Culture - Preliminary Discharge Plan Discharge Attending physician on discharge: Ted Godwin Consulting providers: Ulisses Gambino Discharging Clinician: Sylvia Horton Anticipated Discharge Date/Time: 12/04/19 15:00 Patient Disposition: Home Health Service Activity: may shower and no driving Diet: as tolerated Wound Care Instructions: follow printed instructions and keep dressing dry Discharge Instructions: Orthopedic Recommendations Dr. Ted Godwin Weight-bearing as tolerated on the left lower extremity. Ice. Elevate on pillows. Antibiotic regimen per Dr. Gambino through 12/15. Pull PICC once antibiotic therapy is
== END 2019-12-04 12:25 | disposition home health service (06) ==
LOC: ANHSURGERY 14:44 → ANH3MEDSUR 14:44
PROVIDERS: Admitting Provider Orthopaedic Surgery; PCP Physician Assistant; Visit Provider Orthopaedic Surgery
PROC: (CPT 27340; principal; 2019-12-02 13:00)
DX: M71.062 Abscess of bursa, left knee (principal); R94.31 Abnormal electrocardiogram [ECG] [EKG]; J44.9 Chronic obstructive pulmonary disease, unspecified; K21.9 Gastro-esophageal reflux disease without esophagitis; F17.210 Nicotine dependence, cigarettes, uncomplicated; Z23 Encounter for immunization
CPT/HCPCS: 27340; 36415; 36569; 82565; 87070; 87075; 87205; 90471; 90653; 93005; A9270; C1751; G0008; G0378; J1100; J1170; J2250; J2405; J2704; J3010; J3370; J7120

== ENCOUNTER 2019-12-11 14:09 | Outpatient (CLI) | payer OTHER, SELFPAY ==
--- NOTE | ~2019-12-11 | XR_ITS ---
EXAMINATION: XR chest 2V 12/11/2019 14:26 INDICATION: Midsternal chest pain. PROCEDURE: 2 view chest COMPARISON: 12/04/2019 FINDINGS: The lungs are clear. The cardiomediastinal silhouette is within normal limits. There are no pleural effusions. There is no pneumothorax suspected. PICC line tip in the SVC. Large hiatal he rnia. IMPRESSION: 1: NO ACUTE CARDIOPULMONARY DISEASE. Reviewed, dictated and finalized at location B.
== END 2019-12-11 14:10 | disposition home or self-care (01) ==
LOC: ANHIMG 14:14
PROVIDERS: PCP Physician Assistant; Visit Provider Internal Medicine Infectious Disease
DX: R07.9 Chest pain, unspecified (principal)
CPT/HCPCS: 71046

== ENCOUNTER 2019-12-29 12:31 | Outpatient (CLI) | payer OTHER, SELFPAY ==
[2019-12-29 13:11] LABS: Basophils Percent Auto 0.6 % (0.2-1.2); Eosinophils Absolute Auto 0.1 K/mm3 (0-0.3); Eosinophils Percent Auto 1.5 % (0-4.4); Hematocrit 41.8 % (42.0-52.0); Hemoglobin 14.1 g/dL (14.0-18.0); Immature Granulocyte Absolute 0.05 K/mm3 (0.00-0.031); Immature Granulocyte Percent A 0.7 % (0-0.5); Lymphocytes Absolute Auto 3.09 K/mm3 (0.9-3.2); Lymphocytes Percent Auto 42.9 % (18.3-44.2); Mean Corpuscular HGB Conc 33.7 g/dl (32-36); Mean Corpuscular Hemoglobin 32.6 pg (26-34); Mean Corpuscular Volume 96.5 fl (80-100); Mean Platelet Volume 9.9 fl (7.4-10.4); Monocytes Absolute Auto 0.6 K/mm3 (0.1-0.6); Monocytes Percent Auto 8.5 % (2.6-8.5); Neutrophils Absolute Auto 3.3 K/mm3 (1.3-6.7); Neutrophils Percent Auto 45.8 % (45.5-73.1); Platelet Count Result 199 k/mm3 (150-375); Red Blood Count 4.33 M/mm3 (4.6-6.20); Red Cell Distribution Width 12.5 % (11.5-14.5); White Blood Count 7.2 K/mm3 (4.5-10.0)
[2019-12-29 13:24] LABS: CRP 1.1 mg/dL (<1.0)
== END 2019-12-29 12:32 | disposition home or self-care (01) ==
PROVIDERS: PCP Physician Assistant; Visit Provider Nurse Practitioner Family
DX: M70.42 Prepatellar bursitis, left knee (principal)
CPT/HCPCS: 36415; 85025; 86140

== ENCOUNTER 2020-02-02 17:37 | Outpatient (CLI) | payer OTHER, SELFPAY ==
[2020-02-02 18:12] LABS: Anion Gap 7 mmol/L (8-16); Blood Urea Nitrogen 18 mg/dL (9-20); Calcium 9.5 mg/dL (8.4-10.2); Carbon Dioxide 26 mmol/L (22-30); Chloride 105 mmol/L (98-107); Estimated Glomerular Filt Rate > 60; Glucose 88 mg/dL (75-110); Potassium 4.1 mmol/L (3.4-5.0); Sodium 138 mmol/L (137-145)
== END 2020-02-02 17:38 | disposition home or self-care (01) ==
LOC: ANHLAB 17:38
PROVIDERS: PCP Physician Assistant; Visit Provider Orthopaedic Surgery
DX: Z79.1 Long term (current) use of non-steroidal anti-inflammatories (NSAID) (principal)
CPT/HCPCS: 36415; 80048

== ENCOUNTER 2020-02-27 09:45 | Outpatient (CLI) | payer OTHER, SELFPAY ==
--- NOTE | ~2020-02-27 | MR_ITS ---
EXAMINATION: MR shoulder LT wo con DATE: 02/27/2020 10:38 INDICATION: Left shoulder pain. TECHNIQUE: Magnetic resonance imaging (MRI) of the left shoulder was performed without intravenous co ntrast. Sequences included axial PD-weighted FS FSE, coronal oblique PD-weighted FS FSE and T2-weight ed FS FSE, and sagittal oblique T2-weighted FS FSE and T1-weighted FSE. COMPARISON: left shoulder MRI 10/29/19 FINDINGS: Coracoacromial arch: The acromion undersurface is curved in morphology (type II). There is a mesoacromial os acromiale. Th ere is mild acromioclavicular joint osteoarthritis. There is mild subacromial/subdeltoid bursitis. Rotator cuff: There is an interstitial tear of supraspinatus and infraspinatus tendons measuring 16 mm anterior to posterior by 12 mm proximal to distal by 60 tendon thickness. Teres minor tendon is normal. There is moderate subscapularis tendinopathy. There is no asymmetric fatty atrophy of the rotator cuff muscle bellies. Biceps tendon and glenoid labrum: Biceps tendon is in bicipital groove. There is mild intra-articular biceps tendinopathy. There is a t ear of superior labrum from 11:00 to 12:00 (SLAP tear). Fluid: There is no glenohumeral joint effusion. Bones/cartilage: Glenoid cartilage is normal. Humeral head cartilage is normal. IMPRESSION: 1. Partial-thickness rotator cuff tear. 2. Os acromiale. 3. Mild acromioclavicular joint osteoarthritis. 4. Mild subacromial/subdeltoid bursitis. 5. Mild intra-articular biceps tendinopathy. 6. SLAP tear. Reviewed, dictated and finalized at location A. F [employer]TE[employer]
== END 2020-02-27 09:46 ==
LOC: MICIMG 09:46
PROVIDERS: Visit Provider Orthopaedic Surgery
DX: M19.012 Primary osteoarthritis, left shoulder (principal); M75.52 Bursitis of left shoulder; M75.102 Unspecified rotator cuff tear or rupture of left shoulder, not specified as traumatic; S43.432A Superior glenoid labrum lesion of left shoulder, initial encounter
CPT/HCPCS: 73221

== ENCOUNTER 2024-10-15 15:55 | Outpatient (CLI) | payer OTHER, SELFPAY ==
--- NOTE | ~2024-10-15 | XR_ITS ---
EXAM/ PROCEDURE: XR shoulder RT min 2V - 10/15/2024 16:03 CDT HISTORY: 64 years old Male with Shoulder pain COMPARISON: None available TECHNIQUE: Three view(s) FINDINGS/ IMPRESSION: There are no fractures or dislocations.Joint space narrowing, subchondral sclerosis, subchondral cyst formation and osteophyte formation, compatible with mild osteoarthritis. Reviewed, dictated and finalized at location N.
--- NOTE | ~2024-10-15 | XR_ITS ---
EXAM/ PROCEDURE: XR shoulder LT min 2V - 10/15/2024 16:03 CDT HISTORY: 64 years old Male with Shoulder pain COMPARISON: None available TECHNIQUE: Three view(s) FINDINGS/ IMPRESSION: There are no fractures or dislocations.Joint spaces are within normal limits. Reviewed, dictated and finalized at location N.
== END 2024-10-15 15:56 | disposition home or self-care (01) ==
LOC: MICIMG 15:59
PROVIDERS: PCP Physical Medicine & Rehabilitation Pain Medicine; Visit Provider Physical Medicine & Rehabilitation Pain Medicine
DX: M25.511 Pain in right shoulder (principal); M25.512 Pain in left shoulder
CPT/HCPCS: 73030